=== PATIENT | male | born 1970 | race Caucasian/White ===

== ENCOUNTER → 2021-03-10 | Day surgery (SDC) | payer BC ==
[2021-03-07 12:23] LABS: Absolute Lymphocytes (CBC) 1.1 K/uL (0.7-4.9); Basophils % 0.4 % (0-1.3); Hematocrit 46.9 % (39.6-49.0); Lymphocytes % 12.8 % (15.3-44.8); MPV 7.3 fL (7.6-11.3); RBC Red Blood Cell Count 4.54 M/uL (4.33-5.43)
--- NOTE | 2021-03-07 12:37 | RAD REPORT ---
EXAM DESCRIPTION: RAD - Chest Pa And Lat (2 Views) - 03/07/2021 12:28 pm CLINICAL HISTORY: pre-op, pending hernia repair COMPARISON: Portable March 2017 TECHNIQUE: Frontal and lateral views of the chest were obtained. FINDINGS: The lungs are clear. Heart size is normal and central vasculature is within normal limit s. No pleural effusion or pneumothorax seen. No acute bony finding noted. No aortic abnormality. IMPRESSION: No acute cardiopulmonary process.
[2021-03-07 12:41] LABS: BUN Blood Urea Nitrogen 5 mg/dL (7-18); Bicarbonate 29 mmol/L (21-32); Glucose Level 85 mg/dL (74-106); Potassium 4.3 mmol/L (3.5-5.1); Sodium Level 136 mmol/L (136-145)
[~2021-03-10] MED LIST: CEFAZOLIN/SWI 1gm 0 GM/0 ML SYR ONE; Ringers Lactate 1,000 ML IV ONE; SCOPOLAMINE HYDROBROMIDE PATCH TD ONE
[2021-03-10 09:12] VITALS: BP 126/94; TEMP 98.1; O2SAT 97
== END ==
LOC: OR 08:40
PROVIDERS: ATTEND Surgery
DX: K42.0 Umbilical hernia with obstruction, without gangrene (principal); I10 Essential (primary) hypertension; U07.1 COVID-19; Z53.8 Procedure and treatment not carried out for other reasons
CPT/HCPCS: 93005; 85025; 80048; 36415; 71046; U0003; J7120; J0690

== ENCOUNTER 2021-03-19 08:06 | Day surgery (SDC) | payer BC ==
[2021-03-19] MEDS ORDERED: Ringers Lactate 1,000 ML IV ONE ×2 (08:58→12:09)
[2021-03-19] MEDS ORDERED: MIDAZOLAM HCL 2 MG/2 ML INJ ONE ×3 (09:19→12:15)
[2021-03-19] MEDS ORDERED: propofoL 200 MG/20 ML VIAL IV ONE (09:19)
[2021-03-19] MEDS ORDERED: LIDOCAINE 2% MPF 5 ML VIAL ONE (09:20)
[2021-03-19] MEDS ORDERED: FENTANYL CITR 250 MCG/5 ML ONE (09:20)
[2021-03-19] MEDS ORDERED: ONDANSETRON 4 MG/2 ML VIAL ONE (09:20)
[2021-03-19] MEDS ORDERED: ROCURONIUM 50 MG/5 ML VIAL IV ONE ×2 (09:20→11:02)
[2021-03-19] MEDS ORDERED: GLYCOPYRROLATE 0.2 MG/ML SYR ONE (09:20)
[2021-03-19] MEDS ORDERED: CEFAZOLIN SODIUM 1 GM/VIAL ONE (10:55)
--- NOTE | 2021-03-19 11:30 | P.BOP ---
Preoperative diagnosis: Reducible tender Left inguinal hernia, incarcerated umbilical hernia Postoperative diagnosis: same Primary procedure: 1. Laparoscopic repair of Reducible tender Left inguinal hernia with mesh Secondary procedure: 2. Open repair of incarcerated umbilical hernia Professor Of Historical Theology: ROBINSON ARMAS (BIN CLEANER) Estimated blood loss: <10cc Specimen: hernia sax Findings: as above. incarcerated omentum Anesthesia: General Complications: None Implants: 3d mesh Transferred to: Recovery Room Condition: Good
[2021-03-19] MEDS: HYDROMORPHONE HCL 1 MG/ML INJ ONE ×2 (11:35→11:41)
[2021-03-19] MEDS ORDERED: MEPERIDINE HCL 25 MG/ML SYR ONE (11:41)
[2021-03-19] MEDS ORDERED: FENTANYL CITR 100 MCG/2 ML ONE ×2 (11:43→13:24)
[2021-03-19] MEDS ORDERED: KETOROLAC 30 MG/ML INJ ONE (11:47)
[2021-03-19] MEDS ORDERED: BUPIVACAINE 0.25% PF 30 ML VIAL ONE (12:17)
[2021-03-19] MEDS ORDERED: dexAMETHasone 10 MG/ML VIAL ONE (12:17)
[2021-03-19] MEDS ORDERED: NS 0.9% VIAL 10 ML ONE (12:17)
[2021-03-19] MEDS ORDERED: LIDOCAINE 1% MPF 5 ML VIAL ONE (12:22)
[2021-03-19 12:28] VITALS: O2SAT 98
--- NOTE | 2021-03-19 13:05 | DS ---
Diagnosis: Reducible tender left inguinal hernia and incarcerated umbilical hernia. Procedure: Laparoscopic repair of a reducible tender left inguinal hernia with mesh and open repair of incarcerated umbilical hernia. Disposition: Home. Activity: As tolerated. No heavy lifting. Plan: Follow up in my office in 1 week. Call for appointment at [phone]. Keep area dry for 48 amy rs, then may shower. Cold compress to the left inguinal region for 24 hours. AME/MARIE Voice ID: [id number] Report ID: [id number]
--- NOTE | 2021-03-19 13:11 | OP ---
Date of Procedure: 03/19/2021 Surgeon: Chase Dean MD Systems Engineering Manager: Palma Louis. Preoperative Diagnosis: Reducible tender left inguinal hernia and also incarcerated umbilical hernia . Postoperative Diagnosis: Reducible tender left inguinal hernia and also incarcerated umbilical herni a. Procedures: 1.Laparoscopic repair of reducible tender left inguinal hernia with mesh. 2.Open repair of incarcerated umbilical hernia. Estimated Blood Loss: Less than 10 mL. Specimen: Umbilical hernia sac. Findings: The patient has incarcerated omentum within the hernia sac. Anesthesia: General plus local. Implants: A 3D mesh. Complications: None. Indication: This is the case of a male, who comes to us with a tender left inguinal hernia, large, r educible, and also has an incarcerated umbilical hernia. Benefits, alternatives, and risks of laparo scopic possible repair of left inguinal hernia with mesh and repair of incarcerated umbilical hernia fully explained to the patient, which include, but not limited to infection, bleeding, damage to david cent structures, anesthesia complication, recurrence, chronic pain, chronic numbness, AL, and even de ath. He also understands this may not relieve any symptoms. He might need more than one surgical in tervention. He understood, signed a consent. Procedure In Detail: The patient was brought to the operating room, placed in supine position. Anes thesia was done without complication. Abdominal area and inguinal region were prepped and draped in sterile fashion. The patient was placed in Trendelenburg position. We made an incision in the infra umbilical region. That incision will serve us to not only to get access to the inguinal, but also at the end we are going to be repairing the umbilical hernia. We are trying to stay away from the grecia toneum at this moment. So, we made an incision just below the umbilical region on the anterior rectu s sheath most laterally to expose the posterior rectus sheath. The extraperitoneal space was gently developed with blunt dissection and then a balloon-tipped pacemaker trocar was placed over the area, insufflated under direct visualization with the camera. The balloon was deflated and removed under d irect visualization. Then, the area was insufflated and a laparoscope was placed in. I placed a 5 m m trocar just about the pubis symphysis and another 1 penitent[facility] between the first and second one. The preperitoneal space was further developed by exposing the inferior epigastric vessels keeping them an terior. Aidan ligament was dissected laterally to the junction with the iliac veins. The dissectio n was continued inferiorly to the iliopubic tract avoiding damage to the femoral branch of the genito femoral nerve and lateral femoral cutaneous nerve. The cord structures were carefully skeletonized. We noticed the hernia sac, carefully reduced by gentle traction into the peritoneal cavity. At that moment, I proceeded to introduce over the area through the trocar site a medium 3D mesh on the left side, secured in place to cover indirect spaces. The mesh was secured in place lateral and superior to the iliopubic tract and inferior medial to the Aidan ligament with the help of SorbaFix. After e nsuring adequate hemostasis and holding the mesh in place, we proceeded to deflate the area under dir ect visualization. Trocars were removed and anterior rectus sheath was closed with #1 Vicryl. At th at moment, we directed our attention to the umbilical area. Even though we used the same umbilical s kin and the umbilical incision, the incision in the fascia is different, this is umbilical. So at th at moment, I proceeded to remove the hernia sac from umbilical skin, opened the hernia sac and notice d incarcerated omentum, but after removing some adhesions, we were able to reduced back into the abdo gay cavity, although some of them have to be ligated between Judie clamps and chromic. The area wa s irrigated. Fascial edges were cleaned and then we proceeded to closed that with a [id number] fashion multiple times #1 Prolene. The patient tolerated the procedure well. Subcutaneous tissue wa s closed with 3-0 chromic and the skin in a subcuticular fashion with 3-0 chromic and Steri-Strips on top. Sponge count and instrument counts correct at the end of the case. Testicles were in the scro bryson. The patient was sent to recovery in stable condition. HM/MODL Voice ID: [id number] Report ID: [id number]
[2021-03-19 13:37] VITALS: BP 118/68; TEMP 98
[2021-03-19] MEDS ORDERED: HYDROCODONE/APAP 10/325 TAB PO ONE (13:45)
== END 2021-03-19 14:15 | disposition home or self-care (01) ==
LOC: OR 08:06
PROVIDERS: ATTEND Surgery
PROC: 0YU64JZ Supplement Left Inguinal Region with Synthetic Substitute, Percutaneous Endoscopic Approach (ICD-10-PCS; principal; 2021-03-19 09:30)
PROC: 0WQF0ZZ Repair Abdominal Wall, Open Approach (ICD-10-PCS; 2021-03-19 09:30)
DX: K42.0 Umbilical hernia with obstruction, without gangrene (principal); K40.90 Unilateral inguinal hernia, without obstruction or gangrene, not specified as recurrent; Z20.822 Contact with and (suspected) exposure to COVID-19
CPT/HCPCS: 88302; 49650; 49587; J2704; J2250 ×3; J3010 ×3; J1100; J2175; J1170; J7120 ×2; J2405; J0690

== ENCOUNTER 2021-03-20 04:05 | Inpatient (IN) | payer BC ==
[2021-03-20 04:26] LABS: Absolute Lymphocytes (CBC) 0.9 K/uL (0.7-4.9); Basophils % 0.4 % (0-1.3); Hematocrit 33.4 % (39.6-49.0); Lymphocytes % 8.1 % (15.3-44.8); MPV 7.5 fL (7.6-11.3); RBC Red Blood Cell Count 3.22 M/uL (4.33-5.43)
[2021-03-20] MEDS ORDERED: FENTANYL CITR 100 MCG/2 ML ONE ×3 (04:40→06:46)
[2021-03-20] MEDS ORDERED: NA CHLORIDE 0.9% 1,000 ML ONE ×3 (04:40→19:55)
[2021-03-20 04:43] LABS: Albumin 3.4 g/dL (3.4-5.0); Bilirubin Direct 0.3 mg/dL (0-0.2); Bilirubin Total 0.8 mg/dL (0.2-1.0); Potassium 4.4 mmol/L (3.5-5.1); Protein, Total 6.4 g/dL (6.4-8.2)
[2021-03-20 05:01] LABS: Blood Morphology Comment NOT SEEN (NOT SEEN); Platelet Estimate ADEQ
[2021-03-20] MEDS ORDERED: ONDANSETRON 4 MG/2 ML VIAL ONE ×3 (05:01→14:31)
--- NOTE | 2021-03-20 05:29 | ER ---
Nurse's Notes [facility] Name: Koko Quintero Age: 50 yrs Sex: Male : 1970 Arrival Date: 03/20/2021 Time: 04:09 Bed 2 Private MD: Diagnosis: Post surgical abdominal pain Large amount of hemoperitoneum. S/P umbilical and left inguinal hernia repairs Presentation: 03/20 04:22 Chief complaint: Patient states: patient presents to the ED s/p abdominal surgery. ms4 patient states he had umbilical and inguinal hernia repair yesterday and was sent home with an abdominal binder. patient awoke about 30 minutes ago in excruciating pain with his abdominal binder saturated in blood. patient pale, tachycardic, with active bleeding to surgical site. 250 ml of LR given en route to hospital. Coronavirus screen: Client denies travel out of the [place] in the last 14 days. Ebola Screen: Patient negative for fever greater than or equal to 101.5 degrees Fahrenheit, and additional compatible Ebola Virus Disease symptoms Patient denies exposure to infectious person. Patient denies travel to an Ebola-affected area in the 21 days before illness onset. No symptoms or risks identified at this time. Initial Sepsis Screen: Does the patient meet any 2 criteria? RR > 20 per min. HR > 90 bpm. Yes Does the patient have a suspected source of infection? No. Patient's initial sepsis screen is negative. Risk Assessment: Do you want to hurt yourself or someone else? Patient reports no desire to harm self or others. Note MD at bedside. Onset of symptoms was March 20, 2021 at 04:00. 04:22 Method Of Arrival: EMS: [facility] ms4 04:22 Acuity: RACHEL 2 ms4 04:31 Care prior to arrival: Medication(s) given: LR 250 ml. Activity prior to arrival: None. ms4 Mechanism of Injury: No Mechanism of Injury. Transition of care: patient was not received from another setting of care. Triage Assessment: 04:27 General: Appears distressed, uncomfortable, Behavior is restless. Pain: Complains of ms4 pain in abdomen Pain currently is 10 out of 10 on a pain scale. Quality of pain is described as stabbing, Pain began suddenly, Noted to be grimacing, guarding, moaning, resistant to movement. Neuro: No deficits noted. Cardiovascular: Rhythm is sinus tachycardia. Respiratory: No deficits noted. GI: Abdomen is Bleeding from surgical site Abdomen is tender to palpation Guarding noted X 4 quads. Reports lower abdominal pain. : No deficits noted. Historical: - Allergies: 04:53 No Known Allergies; ms4 - Home Meds: 04:54 Unable to obtain [Active]; ms4 - PMHx: 04:56 Hypertensive disorder; ms4 - Immunization history:: Adult Immunizations up to date, Client reports having NOT received the Covid vaccine. Last tetanus immunization: up to date. - Social history:: Smoking status: Patient reports the use of cigarette tobacco products, denies chronic smoking, but will smoke occasionally, Patient uses alcohol, on a daily basis. admits to "couple of beers" a day. Screenin:33 Abuse screen: Denies threats or abuse. Denies injuries from another. Nutritional ms4 screening: No deficits noted. Tuberculosis screening: No symptoms or risk factors identified. Fall Risk Secondary diagnosis (15 points) impaired mobility, IV access (20 points). Ambulatory Aid- None/Bed Rest/Nurse Assist (0 pts). Gait- Normal/Bed Rest/Wheelchair (0 pts) Mental Status- Oriented to own ability (0 pts). Total Lopez Fall Scale indicates Low Risk Score (25-44 pts). Fall prevention measures have been instituted. Side Rails Up X 2 Placed close to Nursing Station 1:1 attendant Assigned to Pt. Frequent Obs/Assesments occuring. Assessment: 04:56 General: Appears uncomfortable, Behavior is calm, cooperative. Pain: Complains of pain ms4 in abdomen Pain currently is 6 out of 10 on a pain scale. Quality of pain is described as stabbing. Neuro: No deficits noted. Cardiovascular: No deficits noted. Respiratory: No deficits noted. GI: Abdomen is bleeding from surgical site Abdomen is tender to palpation X 4 quads. Reports lower abdominal pain. : No deficits noted. 04:59 Reassessment: Patient and/or family updated on plan of care and expected duration. Pain ms4 level reassessed. patient reports he is feeling a little better after fentanyl. Vital Signs: 04:22 BP 96 / 84; Pulse 109; Resp 30; Temp 97.7; Pulse Ox 96% ; Pain 10/10; ms4 04:57 BP 125 / 98; Pulse 99; Resp 18; Temp 98.4; Pulse Ox 99% 2 lpm ; ms4 05:30 BP 104 / 67; Pulse 108; Resp 22; Pulse Ox 99% 2 lpm ; Pain 8/10; ms4 06:01 BP 97 / 71; Pulse 105; Resp 22; Pulse Ox 98% 2 lpm ; Pain 8/10; ms4 ED Course: 04:09 Patient arrived in ED. mw2 04:22 Amanda Marin RN is Primary Nurse. ms4 04:27 Triage completed. ms4 04:29 Arm band placed on right wrist. Patient placed in an exam room, on a stretcher, on ms4 oxygen, on outpatient program coordinator, on pulse oximetry, Patient's private physician notified. Labs ordered per protocol. CT ordered. Pressure dressing applied. 04:[address] via stretcher. ms4 04:32 Inserted saline lock: 18 gauge in left antecubital area, using aseptic technique. ms4 04:33 Maintain EMS IV. Dressing intact. Good blood return noted. Site clean \\T\\ dry. Gauge \\T\\ ms 4 site: 20 G RAC. IV Flushed Converted IV to saline lock on. 04:34 CT Abd/Pelvis - IV Contrast Only Sent. ms4 04:36 CT Abd/Pelvis - IV Contrast Only In Process Unspecified. EDMS 04:44 Keaton David MD is Attending Physician. pkl 05:24 Chase Dean MD is Hospitalizing Provider. pkl 23:12 No provider procedures requiring assistance completed. Patient admitted, IV remains in em place. Administered Medications: 04:15 Drug: Lactated Ringers Solution 1000 ml Route: IV; Rate: 999 ml/hr; Site: left ms4 antecubital; 04:46 Follow up: Response: No adverse reaction; IV Intake: 1000ml ms4 04:28 Drug: fentaNYL (PF) 25 mcg Route: IVP; Site: left antecubital; ms4 04:46 Follow up: Response: No adverse reaction ms4 04:45 Drug: fentaNYL (PF) 25 mcg Route: IVP; Site: left antecubital; ms4 04:46 Follow up: Response: No adverse reaction ms4 04:46 Drug: NS 0.9% 1000 ml Route: IV; Rate: 125 ml/hr; Site: left antecubital; ms4 05:37 Drug: Dilaudid (HYDROmorphone) 0.5 mg Route: IVP; Site: right antecubital; bs2 06:02 Follow up: Response: No adverse reaction ms4 06:29 Drug: fentaNYL (PF) 25 mcg Route: IVP; Site: left antecubital; ms4 06:29 Follow up: Response: No adverse reaction ms4 06:29 Drug: Promethazine 12.5 mg Route: IVP; Site: left antecubital; ms4 06:29 Follow up: Response: No adverse reaction ms4 Intake: 04:46 IV: 1000ml; Total: 1000ml. ms4 Outcome: 05:28 Decision to Hospitalize by Provider. pkl 23:12 Admitted to Med/surg accompanied by tech, via stretcher, room 229, Report called to em Apurva 23:12 Condition: stable 23:12 Instructed on the need for admit, Demonstrated understanding of instructions. 23:13 Patient left the ED. em Signatures: Dispatcher [employer] Keaton Moody MD MD pkl Munoz, Edgar, RN RN em Leon Uribe mw2 Connie Brar RN RN bs2 Amanda Marin RN RN ms4 Corrections: (The following items were deleted from the chart) 04:54 04:53 Home Meds: Clonazepam Oral [Inactive]; ms4 ms4
--- NOTE | 2021-03-20 05:29 | EDPHYS ---
Physician Documentation [facility] Name: Koko Quintero Age: 50 yrs Sex: Male : 1970 Arrival Date: 03/20/2021 Time: 04:09 Bed 2 Private MD: ED Physician Keaton David HPI: 03/20 04:49 This 50 yrs old Male presents to ER via EMS with complaints of Post Surgical pkl Bleeding. 04:49 The patient presents with abdominal pain that is diffuse. Onset: The symptoms/episode pkl began/occurred just prior to arrival. The symptoms do not radiate. Associated signs and symptoms: Pertinent positives: bleeding from incision wound. S/P umbilical hernia and left inguinal hernia repairs by Dr. Dean. Historical: - Allergies: 04:53 No Known Allergies; ms4 - Home Meds: 04:54 Unable to obtain [Active]; ms4 - PMHx: 04:56 Hypertensive disorder; ms4 - Immunization history:: Adult Immunizations up to date, Client reports having NOT received the Covid vaccine. Last tetanus immunization: up to date. - Social history:: Smoking status: Patient reports the use of cigarette tobacco products, denies chronic smoking, but will smoke occasionally, Patient uses alcohol, on a daily basis. admits to "couple of beers" a day. ROS: 04:49 Eyes: Negative for injury, pain, redness, and discharge, ENT: Negative for injury, pkl pain, and discharge, Neck: Negative for injury, pain, and swelling, Cardiovascular: Negative for chest pain, palpitations, and edema, Respiratory: Negative for shortness of breath, cough, wheezing, and pleuritic chest pain. 04:49 Abdomen/GI: Positive for abdominal pain, of the right upper quadrant, left upper quadrant, right lower quadrant and left lower quadrant. 04:49 Back: Negative for acute changes. 04:49 : Negative for urinary symptoms. 04:49 MS/extremity: Negative for acute changes. 04:49 Skin: Negative for rash. 04:49 Neuro: Negative for altered mental status, loss of consciousness. Exam: 04:49 Head/Face: Normocephalic, atraumatic. Eyes: Pupils equal round and reactive to light, pkl extra-ocular motions intact. Lids and lashes normal. Conjunctiva and sclera are non-icteric and not injected. Cornea within normal limits. Periorbital areas with no swelling, redness, or edema. ENT: Nares patent. No nasal discharge, no septal abnormalities noted. Tympanic membranes are normal and external auditory canals are clear. Oropharynx with no redness, swelling, or masses, exudates, or evidence of obstruction, uvula midline. Mucous membranes moist. Neck: Trachea midline, no thyromegaly or masses palpated, and no cervical lymphadenopathy. Supple, full range of motion without nuchal rigidity, or vertebral point tenderness. No Meningismus. Chest/axilla: Normal chest wall appearance and motion. Nontender with no deformity. No lesions are appreciated. Cardiovascular: Regular rate and rhythm with a normal S1 and S2. No gallops, murmurs, or rubs. Normal PMI, no JVD. No pulse deficits. Respiratory: Lungs have equal breath sounds bilaterally, clear to auscultation and percussion. No rales, rhonchi or wheezes noted. No increased work of breathing, no retractions or nasal flaring. 04:49 Abdomen/GI: Bowel sounds: normal, Palpation: soft, moderate abdominal tenderness, in the right upper quadrant, left upper quadrant, right lower quadrant and left lower quadrant. 04:49 Abdomen/GI: Inspection: moderate amount of blood noted on abdominal binder. 04:49 Back: Exam negative for acute changes. 04:49 : Exam negative for acute changes. 04:49 Musculoskeletal/extremity: Exam is negative for acute changes. 04:49 Skin: Exam negative for rash. 04:49 Neuro: Orientation: is normal, Mentation: is normal, Cranial nerves: grossly normal, Motor: is normal. Vital Signs: 04:22 BP 96 / 84; Pulse 109; Resp 30; Temp 97.7; Pulse Ox 96% ; Pain 10/10; ms4 04:57 BP 125 / 98; Pulse 99; Resp 18; Temp 98.4; Pulse Ox 99% 2 lpm ; ms4 05:30 BP 104 / 67; Pulse 108; Resp 22; Pulse Ox 99% 2 lpm ; Pain 8/10; ms4 06:01 BP 97 / 71; Pulse 105; Resp 22; Pulse Ox 98% 2 lpm ; Pain 8/10; ms4 MDM: 04:44 Patient medically screened. pkl 05:21 Data reviewed: vital signs, nurses notes, lab test result(s), radiologic studies, CT pkl scan. ED course: Talked to Dr. Dean, for observation. 03/20 04:13 Order name: Basic Metabolic Panel; Complete Time: 05:29 ms4 03/20 04:13 Order name: CBC with Diff; Complete Time: 05:29 ms4 03/20 04:13 Order name: Hepatic Function; Complete Time: 05:29 ms4 03/20 04:13 Order name: Lipase; Complete Time: 05:29 ms4 03/20 04:13 Order name: Type And Screen; Complete Time: 19:07 ms4 03/20 04:28 Order name: Manual Differential; Complete Time: 05:29 EDMS 03/20 04:44 Order name: PT-INR ms4 03/20 04:45 Order name: Protime (+INR); Complete Time: 06:23 EDMS 03/20 05:45 Order name: CREATININE WHOLE BLOOD; Complete Time: 06:23 EDMS 03/20 05:52 Order name: Hematocrit; Complete Time: 19:20 EDMS 03/20 05:52 Order name: Hemoglobin; Complete Time: 19:20 EDMS 03/20 08:41 Order name: ABO/RH no charge; Complete Time: 19:20 EDMS 03/20 16:09 Order name: CBC with Automated Diff; Complete Time: 19:20 EDMS 03/20 16:37 Order name: CBC Smear Scan; Complete Time: 19:20 EDMS 03/20 04:13 Order name: CT Abd/Pelvis - IV Contrast Only; Complete Time: 19:20 ms4 03/20 05:52 Order name: NPO; Complete Time: 06:02 EDMS 03/20 17:27 Order name: Hemoglobin; Complete Time: 19:20 EDMS 03/20 17:27 Order name: Hematocrit; Complete Time: 19:20 EDMS 03/20 18:36 Order name: COVID-19 : Document "Date of Symptom Onset" if Symptomatic. ss 03/20 19:35 Order name: CORONAVIRUS EDMS 03/20 20:38 Order name: CBC with Manual Differential em 03/20 20:43 Order name: SARS-COV-2 RT PCR; Complete Time: 19:07 EDMS 03/20 21:03 Order name: CBC with Manual Differential; Complete Time: 19:07 EDMS 03/20 04:13 Order name: IV Saline Lock; Complete Time: 04:34 ms4 03/20 04:13 Order name: Labs collected and sent; Complete Time: 04:34 ms4 03/20 04:52 Order name: Labs - recollect needed: blue top; Complete Time: 05:21 mw2 Administered Medications: 04:15 Drug: Lactated Ringers Solution 1000 ml Route: IV; Rate: 999 ml/hr; Site: left ms4 antecubital; 04:46 Follow up: Response: No adverse reaction; IV Intake: 1000ml ms4 04:28 Drug: fentaNYL (PF) 25 mcg Route: IVP; Site: left antecubital; ms4 04:46 Follow up: Response: No adverse reaction ms4 04:45 Drug: fentaNYL (PF) 25 mcg Route: IVP; Site: left antecubital; ms4 04:46 Follow up: Response: No adverse reaction ms4 04:46 Drug: NS 0.9% 1000 ml Route: IV; Rate: 125 ml/hr; Site: left antecubital; ms4 05:37 Drug: Dilaudid (HYDROmorphone) 0.5 mg Route: IVP; Site: right antecubital; bs2 06:02 Follow up: Response: No adverse reaction ms4 06:29 Drug: fentaNYL (PF) 25 mcg Route: IVP; Site: left antecubital; ms4 06:29 Follow up: Response: No adverse reaction ms4 06:29 Drug: Promethazine 12.5 mg Route: IVP; Site: left antecubital; ms4 06:29 Follow up: Response: No adverse reaction ms4 Disposition Summary: 03/20/21 05:28 Hospitalization Ordered Hospitalization Status: Observation pkl Provider: Chase Dean pkrobyn Condition: Stable pkl Problem: new pkl Symptoms: have improved pkl Bed/Room Type: Standard pkl Location: Telemetry/MedSurg (observation)(03/20/21 22:10) cg Room Assignment: 229(03/20/21 22:10) cg Diagnosis - Post surgical abdominal pain Large amount of hemoperitoneum. S/P umbilical pkl and left inguinal hernia repairs Forms: - Medication Reconciliation Form pkl - SBAR form pkl Signatures: Dispatcher [employer] EDMS David, Pin, MD Estela Stahl, RN RN ss Eber Ortega, ELECTRIC MOTOR WINDERS ASSEMBLER-C ELECTRIC MOTOR WINDERS ASSEMBLER-Cla1 Karrie Richardson RN RN Leon Uribe 2 Connie Brar RN RN bs2 Amanda Marin RN RN ms4 Corrections: (The following items were deleted from the chart) 04:54 04:53 Home Meds: Clonazepam Oral [Inactive]; ms4 ms4 12:03 05:28 Telemetry/MedSurg (observation) pkl 12:03 05:28 pkl 22:10 12:03 [facility] ER HOLD ss cg 22:10 12:03 ERHOLD- ss cg
[2021-03-20 05:37] LABS: Protime INR 0.99
[2021-03-20] MEDS ORDERED: MORPHINE 4 MG/ML SYR IV PRN (05:47)
[2021-03-20] MEDS ORDERED: HYDROMORPHONE HCL 2 MG/ML inj ONE (05:58)
[2021-03-20] MEDS ORDERED: D5 0.45 NS 1,000 ML IV SCH (06:00)
[2021-03-20] MEDS ORDERED: D5 0.45 NS 1,000 ML IV ONE (06:34)
[2021-03-20] MEDS ORDERED: PROMETHAZINE INJ 25 MG/ML AMP ONE (06:45)
[2021-03-20 07:02] LABS: Hematocrit 27.3 % (39.6-49.0)
[2021-03-20] MEDS: ONDANSETRON 4 MG/2 ML VIAL IV PRN ×4 (07:55→23:34)
[2021-03-20] MEDS ORDERED: MORPHINE 4 MG/ML SYR ONE ×7 (08:10→22:50)
[2021-03-20] MEDS ORDERED: NA CHLORIDE 0.9% 1,000 ML IV ONE (10:37)
[2021-03-20] MEDS: MORPHINE 4 MG/ML SYR IV PRN ×5 (10:44→19:20)
--- NOTE | 2021-03-20 11:30 | RAD REPORT ---
EXAM DESCRIPTION: ADDENDUM #1 THIS REPORT CONTAINS FINDINGS THAT MAY BE CRITICAL TO PATIENT CARE: The findings were communicated via telephone conference with Dr. Adan on 03/20/2021 5:18 AM CDT. The re sults were acknowledged and understood. After this discussion, findings are compatible with postoperative changes from hernia surgery, not tr auma. The large hemoperitoneum and right abdominal hematoma with extravasation were discussed with Dr Shimon Adan. Electronically signed by: Abundio Ambrocio MD 03/20/2021 5:20 AM CDT End of Addendum EXAM DESCRIPTION: CT Abdomen and Pelvis COMPARISON: None. CLINICAL HISTORY: ABD PAIN TECHNIQUE: CT of the abdomen and pelvis was acquired with IV contrast material. Coronal and sagitt al reconstructions were obtained. Automated exposure control was utilized on this examination as a dose lowering technique. FINDINGS: Lung bases: Right basilar atelectasis. There is anterior pneumomediastinum. Liver: Normal. Gallbladder and biliary: Normal gallbladder. Unremarkable biliary tree. Pancreas: Normal. Spleen: Normal. Adrenal glands: Normal adrenal glands. Kidneys: Normal kidneys Stomach and Small Bowel: The stomach and small bowel are normal. Urinary bladder: Normal. Prostate/Male Urogenital: Normal. Colon and Appendix: The colon is unremarkable. No evidence of appendicitis. Retroperitoneum and lymph nodes: A few mesenteric and retroperitoneal lymph nodes are likely reactive . Vascular: Moderate multivessel calcified atherosclerosis. Peritoneal cavity: Hemoperitoneum and scattered pneumoperitoneum. A large collection of blood in the right abdomen measures 13.6 x 6.5 x 16.1 cm. There is also left extraperitoneal blood. Musculoskeletal and soft tissues: Multiple lacerations of the ventral abdomen are present. Periumbili dash hematoma and laceration are noted. No aggressive bone lesions. No compression fracture. IMPRESSION: 1. Large amount of hemoperitoneum. A collection of blood in the right abdomen measures 1 3.6 x 6.5 x 16.1 cm. There is active extravasation with a likely ventral omental or mesenteric source vessel on series 501 image 50. There is also left extraperitoneal blood, likely from injury to the l eft abdominal musculature. 2. Partially visualized anterior pneumomediastinum and scattered pneumoperitoneum. Periumbilical lace ration or chest injury are possible sources. Electronically signed by: Abundio Abmrocio MD 03/20/2021 5:02 AM CDT Due to temporary technical issues with the PACS/Fluency reporting system, reports are being signed by the in house radiologist without review as a courtesy to ensure prompt reporting. The interpreting r adiologist is fully responsible for the content of the report.
[2021-03-20] MEDS: NA CHLORIDE 0.9% 1,000 ML IV SCH ×2 (12:00→18:40)
--- NOTE | 2021-03-20 13:57 | HP ---
Date of Admission: 03/20/2021 Reason For Service: Abdominal pain. History Of Present Illness: This is the case of a 50-year-old patient, who had a previous laparoscop ic inguinal hernia repair, also open repair of a ventral umbilical hernia incarcerated with omentum. The case was uneventful. The patient was able to go home. He was doing good until 8 o'clock last n ight. He says that he was getting out of bed due to lot of straining and felt a pop in the area near the belly button. He stayed quiet and developed abdominal pain after that and then when the pain go t worse, he decided to come to the ER. The patient was seen in the ER where the CT scan shows bruise s over the area of periumbilical region. Some postsurgical changes of areas from the previous laparo scopic repair and also area of fluid collection also in the abdomen. He denies any fall. He said he was doing great until that moment when he was trying to get out of bed, taken a lot of efforts to co me out and he fell that popping. He denies any dysuria, hematuria, hematochezia, melena. Once again , he denies any fall. Social History: He does not smoke. He does not drink alcohol. Family History: Unremarkable. Allergies: NONE. Past Medical History: See my previous H and P. Review of Systems: No nausea. No vomiting. No melena. No hematochezia, but having periumbilical pain. Physical Examination: General: The patient is awake, alert. HEENT: Pupils are equal, reactive. Anicteric. Neck: Supple. Chest: Clear. Abdomen: Soft and depressible. The incisions over the midline and lower part look intact. The inci gloria on the periumbilical region in that area after I removed the Steri-Strips. The patie nt has periumbilical tenderness. The area of the left inguinal region and on the infraumbilical inci gloria is intact with no pain. Extremities: Good capillary refill. CAT scan was reviewed with the patient. Obviously, the fluid that we have in that region. Laparosco pic procedure will do so. The patient has postoperative changes. When we did the surgery, the ventr al region hernia has some omentum trapped on the area so lysis of adhesions have to be done and also a tie of the omental region. No mesh was placed in that area. Laboratory Data: Blood work shows WBC count of 11.6, hemoglobin of 11.6, hematocrit of 33.4, and trey telets of 189. Assessment: This is a 50-year-old patient with abdominal pain, he felt a pop yesterday. He has been doing well after he finished surgery and then after that developed abdominal pain and we noticed miguel e fluid in the abdomen, even though maybe some postoperative changes. I believe the patient should b e in the hospital and basically we are going to keep in observation H and H. If we see that he does not improve, then we discussed with him the options of diagnostic laparoscopy, although he preferred not to use that option at this moment. His hemoglobin is 11.6 at that moment. We are going to keep an eye on hemoglobin. We are going to give him hydration and pain control. The benefits, alternativ es, and risks of diagnostic laparoscopy were fully explained to the patient, which include, but not l imited to infection, bleeding, damage to adjacent structures, anesthesia complication, recurrence UT, and even . The patient was advised in the future the importance to keep the abdominal binder i n place and avoid heavy lifting. The patient will be admitted to the hospital, IV hydration, follow H and H, and we will might have to proceed and investigate the periumbilical region. AME/MARIE Voice ID: [id number]
[2021-03-20] MEDS: HYDROCODONE/APAP 5/325 MG TAB PO PRN ×3 (15:53→23:34)
[2021-03-20 16:05] LABS: Absolute Lymphocytes (CBC) 1.1 K/uL (0.7-4.9); Basophils % 0.2 % (0-1.3); Hematocrit 21.9 % (39.6-49.0); Lymphocytes % 7.2 % (15.3-44.8); RBC Red Blood Cell Count 2.11 M/uL (4.33-5.43)
[2021-03-20] MEDS ORDERED: HYDROCODONE/APAP 5/325 MG TAB ONE ×2 (16:08→20:31)
[2021-03-20 16:36] LABS: White Blood Cell Scan OK (OK)
[2021-03-20 16:37] LABS: Blood Morphology Comment NOT SEEN (NOT SEEN); Platelet Estimate ADEQ
[2021-03-20 17:23] LABS: Hematocrit 31.5 % (39.6-49.0)
[2021-03-20] MEDS ORDERED: NA CHLORIDE 0.9% 500 ML ONE (17:47)
[2021-03-20 20:55] LABS: Basophils % 0.2 % (0-1.3)
[2021-03-20 20:59] LABS: Absolute Lymphocytes (CBC) 0.9 K/uL (0.7-4.9); Hematocrit 24.1 % (39.6-49.0); Lymphocytes % 6.6 % (15.3-44.8); MPV 7.7 fL (7.6-11.3); RBC Red Blood Cell Count 2.46 M/uL (4.33-5.43)
[2021-03-20] MEDS: CIPROFLOXACIN 400mg IV 400 MG/200 ML BAG IV SCH (21:00)
[2021-03-20 21:26] LABS: Blood Morphology Comment NOT SEEN (NOT SEEN); Platelet Estimate DECR
[2021-03-20 23:27] VITALS: BMI 25.5
[2021-03-21] MEDS ORDERED: NA CHLORIDE 0.9% 250 ML ONE (00:48)
[2021-03-21] MEDS: NA CHLORIDE 0.9% 1,000 ML IV SCH ×4 (01:20→21:20)
[2021-03-21] MEDS: MORPHINE 4 MG/ML SYR IV PRN ×4 (01:21→08:43)
[2021-03-21] MEDS ORDERED: MORPHINE 2 MG/ML SYR ONE (01:38)
[2021-03-21 07:36] LABS: Hematocrit 24.6 % (39.6-49.0)
[2021-03-21] MEDS: CIPROFLOXACIN 400mg IV 400 MG/200 ML BAG IV SCH ×2 (08:42→20:28)
[2021-03-21] MEDS: HYDROCODONE/APAP 5/325 MG TAB PO PRN ×3 (11:59→20:28)
--- NOTE | 2021-03-21 18:18 | PN ---
Date of Progress Note: 03/21/2021 Subjective: Mr. Quintero is a 50-year-old patient with history of multiple abdominal surgeries includi ng ventral hernias and also inguinal hernias with incarceration and release of the omentum with adhes ions on it. He was doing well. One night, when he moved out of bed, he felt a pop in the belly, cam e to the ER a few hours later because of pain, found to have hemoperitoneum. He is going to have pne umo because he has laparoscopic surgery too. We noticed, he also popped 1 of the stitches on the umb ilical region. He was trying to get out. He did not fall he was describing. We admitted to the [facility]. We started on IV fluids. Serial H and H. He understands the option of diagnostic laparoscop y. With the fluid resuscitation, the patient improved. Blood pressure improved. His pain is less. He is right now hungry. He wants to eat some diet. He wants to get out of bed. Vital signs are st able with a blood pressure of 119/67 with a temperature 98.4. We took a look in the area this mornin g. Incisions in the umbilical region were intact. No bleeding. Plan: Clear liquid diet. Follow up H and H. Physical therapy. Out of bed with assistance. AME/MARIE Voice ID: [id number] Report ID: [id number]
[2021-03-22] MEDS: NA CHLORIDE 0.9% 1,000 ML IV SCH ×3 (00:25→06:42)
[2021-03-22] MEDS: HYDROCODONE/APAP 5/325 MG TAB PO PRN ×6 (00:27→23:08)
[2021-03-22 06:09] LABS: Absolute Lymphocytes (CBC) 1.4 K/uL (0.7-4.9); Basophils % 0.4 % (0-1.3); Lymphocytes % 19.2 % (15.3-44.8); RBC Red Blood Cell Count 1.96 M/uL (4.33-5.43)
[2021-03-22] MEDS ORDERED: NA CHLORIDE 0.9% 1,000 ML IV SCH (08:00)
[2021-03-22] MEDS: CIPROFLOXACIN 400mg IV 400 MG/200 ML BAG IV SCH ×2 (08:15→21:39)
[2021-03-22] MEDS ORDERED: NA CHLORIDE 0.9% 250 ML IV SCH (10:00)
[2021-03-22 19:55] LABS: Hematocrit 23.3 % (39.6-49.0)
[2021-03-23] MEDS: HYDROCODONE/APAP 5/325 MG TAB PO PRN ×4 (04:07→20:10)
[2021-03-23] MEDS: CIPROFLOXACIN 400mg IV 400 MG/200 ML BAG IV SCH ×2 (08:52→20:10)
[2021-03-23 09:24] LABS: Absolute Lymphocytes (CBC) 1.2 K/uL (0.7-4.9); Basophils % 0.2 % (0-1.3); Hematocrit 26.8 % (39.6-49.0); Lymphocytes % 11.6 % (15.3-44.8); MPV 7.4 fL (7.6-11.3); RBC Red Blood Cell Count 2.78 M/uL (4.33-5.43)
[2021-03-23 10:26] VITALS: O2SAT 97
[2021-03-24] MEDS: HYDROCODONE/APAP 5/325 MG TAB PO PRN ×3 (00:02→09:24)
[2021-03-24] MEDS: CIPROFLOXACIN 400mg IV 400 MG/200 ML BAG IV SCH (08:10)
[2021-03-24 09:06] VITALS: BP 154/98; TEMP 97.8
[2021-03-24 09:11] LABS: Absolute Lymphocytes (CBC) 1.4 K/uL (0.7-4.9); Basophils % 0.3 % (0-1.3); Hematocrit 27.6 % (39.6-49.0); Lymphocytes % 14.4 % (15.3-44.8); RBC Red Blood Cell Count 2.85 M/uL (4.33-5.43)
--- NOTE | 2021-03-24 16:25 | DS ---
Date of Discharge: 03/24/2021 Diagnoses: History of ventral hernia, history of inguinal hernia, history of incarcerated ventral he rnia repair, hemoperitoneum. Hospital Course: The patient is doing well. No complaint. Tolerating diet. Ambulating. No shortn ess of breath. No chest pain. No fever. He is having bowel movement, passing gas. Physical Examination: Chest: Clear. Abdomen: Soft and depressible. Intact surgical sites. No open wounds. No cellulitis. No guarding or rebound. Extremities: Good capillary refill. Laboratory Data: Hemoglobin stable right now 9.7. Discharge Instructions: The patient wants to go home, I agree. The patient will be going home, be c areful with heavy lifting. We discussed with him the importance of when he gets out of bed, just be nice and slow and avoid any accidents or any falls. We will see the patient next Wednesday in my off ice. He can go with normal diet and no heavy lifting. AME/MARIE Voice ID: [id number] Report ID: [id number]
== END 2021-03-24 10:50 | disposition home or self-care (01) | DRG 395 ==
LOC: ER 04:05 → ERHOLD 05:38 → OBSVTOIN 15:08 → 2ND 22:19
PROVIDERS: ADMIT Surgery; ATTEND Surgery
PROC: 30233N1 Transfusion of Nonautologous Red Blood Cells into Peripheral Vein, Percutaneous Approach (ICD-10-PCS; principal; 2021-03-20)
DX: K66.1 Hemoperitoneum (principal); F17.210 Nicotine dependence, cigarettes, uncomplicated; Z20.822 Contact with and (suspected) exposure to COVID-19
CPT/HCPCS: 36415; 36430; 74177; 80048; 80076; 82565; 83605; 83690; 85014; 85018; 85025; 85610; 86850; 86900; 86901; 94010; 97161; 99285; J0744; J1170; J2270; J2405; J2550; J3010; J7030; J7040; J7050; J7799; P9016; Q9967; U0003

== ENCOUNTER 2023-04-12 12:51 | Emergency (ER) | payer BC ==
--- OUTSIDE RECORDS SUMMARY | 2023-04-12 12:55 | XMS REPORT | Continuity of Care Document ---
:1970 Author Organization [facility] t Address [address] [place] [address] [place] [id number] Care Team Providers Name Role Phone Kyra He Primary Care Physician [phone] Problems This patient has no known problems. Allergies, Adverse Reactions, Alerts This patient has no known allergies or adverse reactions. Medications Ordered Filled Start Stop Current Ordering Indication Dosage Frequency Signature Comments Components Source Medication Medication Date Date Medication? Clinician (SIG) Name Name Dose 2021-0 No Unknown 14 00:00: 00 Dose 2021-0 No Unknown 04-29 00:00: 00 Dose 2021-0 No Unknown -14 00:00: 00 VALSARTAN 2021-0 No 80 MG 8-23 TABLET 00:00: 00 VALSARTAN 2021-0 No 80 MG 8-23 TABLET 00:00: 00 VALSARTAN 2022-0 No 80 MG 8-23 TABLET 00:00: 00 Suboxone 8 2021-0 No 1mg mg-2 mg 8-11 sublingual 00:00: film 00 Dose 2021-0 No 150 Unknown 8- 00:00: 00 INJECT 2022-0 No 200 0.9ML INTO 8-11 THE MUSCLE 00:00: ONCE 00 WEEKLY. INJECT ONE 2021-0 No (1) ML(S) 8-11 INTO THE 00:00: MUSCLE ONCE 00 WEEKLY. Dose 2-0 No Unknown 8-11 00:00: 00 &lt 2022-0 No 8-11 00:00: 00 &lt 2022-0 No 8-11 00:00: 00 &lt 2022-0 No 8-11 00:00: 00 &lt 2022-0 No 150 8-11 00:00: 00 Suboxone 8 2022-0 No 1mg mg-2 mg 8-11 sublingual 00:00: film 00 Dose 2022-0 No 150 Unknown 8-11 00:00: 00 INJECT 2022-0 No 200 0.9ML INTO 8-11 THE MUSCLE 00:00: ONCE 00 WEEKLY. INJECT ONE 2-0 No (1) ML(S) 8-11 INTO THE 00:00: MUSCLE ONCE 00 WEEKLY. Dose 2022-0 No Unknown 8-11 00:00: 00 &lt 2022-0 No 8-11 00:00: 00 &lt 2022-0 No 8-11 00:00: 00 &lt 2022-0 No 8-11 00:00: 00 &lt 2022-0 No 150 8-11 00:00: 00 Suboxone 8 2021-0 No 1mg mg-2 mg 8-11 sublingual 00:00: film 00 Dose 2-0 No 150 Unknown 8-11 00:00: 00 INJECT 2022-0 No 200 0.9ML INTO 8-11 THE MUSCLE 00:00: ONCE 00 WEEKLY. INJECT ONE 2-0 No (1) ML(S) 8-11 INTO THE 00:00: MUSCLE ONCE 00 WEEKLY. Dose 2022-0 No Unknown 8-11 00:00: 00 &lt 2022-0 No 8-11 00:00: 00 &lt 2022-0 No 8-11 00:00: 00 &lt 2022-0 No 8-11 00:00: 00 &lt 2022-0 No 150 8-11 00:00: 00 &lt 2022-0 No 300 8-10 00:00: 00 &lt 2022-0 No 300 8-10 00:00: 00 &lt 2022-0 No 300 8-10 00:00: 00 TAKE ONE 2022-0 No 150 (1) 7-19 TABLET(S) 00:00: BY MOUTH 00 ONCE A DAY. Dose 2022-0 No Unknown 7-19 00:00: 00 &lt 2022-0 No 7-19 00:00: 00 &lt 2022-0 No 80 7-19 00:00: 00 &lt 2022-0 No 7-19 00:00: 00 TAKE ONE 2022-0 No 150 (1) 7-19 TABLET(S) 00:00: BY MOUTH 00 ONCE A DAY. Dose 2022-0 No Unknown 7-19 00:00: 00 &lt 2022-0 No 7-19 00:00: 00 &lt 2022-0 No 80 7-19 00:00: 00 &lt 2022-0 No 7-19 00:00: 00 TAKE ONE 2022-0 No 150 (1) 7-19 TABLET(S) 00:00: BY MOUTH 00 ONCE A DAY. Dose 2022-0 No Unknown 7-19 00:00: 00 &lt 2022-0 No 7-19 00:00: 00 &lt 2022-0 No 80 7-19 00:00: 00 &lt 2022-0 No 7-19 00:00: 00 Suboxone 8 2-0 No 1mg mg-2 mg 7-14 sublingual 00:00: film 00 &lt 2022-0 No 150 7-14 00:00: 00 Dose 2022-0 No Unknown 7-14 00:00: 00 PLACE ONE 2022-0 No 8 (1) FILM 7-14 UNDER THE 00:00: TONGUE 00 TWICE A DAY. &lt 2022-0 No 300 7-14 00:00: 00 INJECT ONE 2022-0 No 200 (1) ML(S) 7-14 INTO THE 00:00: MUSCLE ONCE 00 WEEKLY. Dose 2022-0 No Unknown 7-14 00:00: 00 INJECT ONE 2022-0 No (1) ML(S) 7-14 INTO THE 00:00: MUSCLE ONCE 00 WEEKLY. &lt 2022-0 No 7-14 00:00: 00 &lt 2022-0 No 7-14 00:00: 00 &lt 2022-0 No 150 7-14 00:00: 00 Suboxone 8 2022-0 No 1mg mg-2 mg 7-14 sublingual 00:00: film 00 &lt 2022-0 No 150 7-14 00:00: 00 Dose 2022-0 No Unknown 7-14 00:00: 00 PLACE ONE 2022-0 No 8 (1) FILM 7-14 UNDER THE 00:00: TONGUE 00 TWICE A DAY. &lt 2022-0 No 300 7-14 00:00: 00 INJECT ONE 2022-0 No 200 (1) ML(S) 7-14 INTO THE 00:00: MUSCLE ONCE 00 WEEKLY. Dose 2022-0 No Unknown 7-14 00:00: 00 INJECT ONE 2022-0 No (1) ML(S) 7-14 INTO THE 00:00: MUSCLE ONCE 00 WEEKLY. &lt 2022-0 No 7-14 00:00: 00 &lt 2022-0 No 7-14 00:00: 00 &lt 2022-0 No 150 7-14 00:00: 00 Suboxone 8 2022-0 No 1mg mg-2 mg 7-14 sublingual 00:00: film 00 &lt 2022-0 No 150 7-14 00:00: 00 Dose 2022-0 No Unknown 7-14 00:00: 00 PLACE ONE 2022-0 No 8 (1) FILM 7-14 UNDER THE 00:00: TONGUE 00 TWICE A DAY. &lt 2022-0 No 300 7-14 00:00: 00 INJECT ONE 2022-0 No 200 (1) ML(S) 7-14 INTO THE 00:00: MUSCLE ONCE 00 WEEKLY. Dose 2022-0 No Unknown 7-14 00:00: 00 INJECT ONE 2022-0 No (1) ML(S) 7-14 INTO THE 00:00: MUSCLE ONCE 00 WEEKLY. &lt 2022-0 No 7-14 00:00: 00 &lt 2022-0 No 7-14 00:00: 00 &lt 2022-0 No 150 7-14 00:00: 00 Suboxone 8 2022-0 No 1mg mg-2 mg 6-16 sublingual 00:00: film 00 DISSOLVE 2022-0 No ONE (1) 6-16 FILM(S) 00:00: UNDER THE 00 TONGUE TWICE DAILY. &lt 2022-0 No 6-16 00:00: 00 &lt 2022-0 No 6-16 00:00: 00 &lt 2022-0 No 6-16 00:00: 00 INJECT ONE 2022-0 No (1) ML(S) 6-16 INTO THE 00:00: MUSCLE ONCE 00 WEEKLY. &lt 2022-0 No 6-16 00:00: 00 &lt 2022-0 No 6-16 00:00: 00 INJECT ONE 2022-0 No (1) ML(S) 6-16 INTO THE 00:00: MUSCLE ONCE 00 WEEKLY. Suboxone 8 2022-0 No 1mg mg-2 mg 6-16 sublingual 00:00: film 00 DISSOLVE 2022-0 No ONE (1) 6-16 FILM(S) 00:00: UNDER THE 00 TONGUE TWICE DAILY. &lt 2022-0 No 6-16 00:00: 00 &lt 2022-0 No 6-16 00:00: 00 &lt 2022-0 No 6-16 00:00: 00 Suboxone 8 2022-0 No 1mg mg-2 mg 6-16 sublingual 00:00: film 00 INJECT ONE 2022-0 No (1) ML(S) 6-16 INTO THE 00:00: MUSCLE ONCE 00 WEEKLY. DISSOLVE 2022-0 No ONE (1) 6-16 FILM(S) 00:00: UNDER THE 00 TONGUE TWICE DAILY. &lt 2022-0 No 6-16 00:00: 00 &lt 2022-0 No 6-16 00:00: 00 &lt 2022-0 No 6-16 00:00: 00 INJECT ONE 2022-0 No (1) ML(S) 6-16 INTO THE 00:00: MUSCLE ONCE 00 WEEKLY. &lt 2022-0 No 6-16 00:00: 00 &lt 2022-0 No 6-16 00:00: 00 INJECT ONE 2022-0 No (1) ML(S) 6-16 INTO THE 00:00: MUSCLE ONCE 00 WEEKLY. &lt 2022-0 No 6-16 00:00: 00 &lt 2022-0 No 6-16 00:00: 00 INJECT ONE 2022-0 No (1) ML(S) 6-16 INTO THE 00:00: MUSCLE ONCE 00 WEEKLY. Suboxone 4 2022-0 No 1mg mg-1 mg 5-17 sublingual 00:00: film 00 Suboxone 8 2022-0 No 1mg mg-2 mg 5-17 sublingual 00:00: film 00 Suboxone 4 2022-0 No 1mg mg-1 mg 5-17 sublingual 00:00: film 00 Suboxone 8 2022-0 No 1mg mg-2 mg 5-17 sublingual 00:00: film 00 Suboxone 4 2022-0 No 1mg mg-1 mg 5-17 sublingual 00:00: film 00 Suboxone 8 2022-0 No 1mg mg-2 mg 5-17 sublingual 00:00: film 00 Dose 2022-0 No Unknown 5-10 00:00: 00 Dose 2022-0 No Unknown 5-10 00:00: 00 Dose 2-0 No Unknown 5-10 00:00: 00 Dose 2-0 No Unknown 5-10 00:00: 00 Dose 2022-0 No Unknown 5-10 00:00: 00 Dose 2022-0 No Unknown 5-10 00:00: 00 Suboxone 4 2-0 No 1mg mg-1 mg 5-10 sublingual 00:00: film 00 Dose 2-0 No Unknown 5-10 00:00: 00 Dose 2-0 No Unknown 5-10 00:00: 00 Dose 2-0 No Unknown 5-10 00:00: 00 Dose 2-0 No Unknown 5-10 00:00: 00 Dose 2-0 No Unknown 5-10 00:00: 00 Dose 2-0 No Unknown 5-10 00:00: 00 Dose 2-0 No Unknown 5-10 00:00: 00 Dose 2-0 No Unknown 5-10 00:00: 00 Dose 2-0 No Unknown 5-10 00:00: 00 Dose 2-0 No Unknown 5-10 00:00: 00 Dose 2-0 No Unknown 5-10 00:00: 00 Dose 2-0 No Unknown 5-10 00:00: 00 Dose 2-0 No Unknown 5-10 00:00: 00 Dose 2-0 No Unknown 5-10 00:00: 00 Dose 2-0 No Unknown 5-10 00:00: 00 Suboxone 4 2-0 No 1mg mg-1 mg 5-10 sublingual 00:00: film 00 Dose 2-0 No Unknown 5-10 00:00: 00 Dose 2022-0 No Unknown 5-10 00:00: 00 Dose 2-0 No Unknown 5-10 00:00: 00 Dose 2-0 No Unknown 5-10 00:00: 00 Dose 2-0 No Unknown 5-10 00:00: 00 Dose 2-0 No Unknown 5-10 00:00: 00 Dose 2022-0 No Unknown 5-10 00:00: 00 Dose 2022-0 No Unknown 5-10 00:00: 00 Dose 2022-0 No Unknown 5-10 00:00: 00 Dose 2-0 No Unknown 5-10 00:00: 00 Dose 2-0 No Unknown 5-10 00:00: 00 Suboxone 4 2021-0 No 1mg mg-1 mg 5-10 sublingual 00:00: film 00 Dose 2-0 No Unknown 5-10 00:00: 00 Dose 2022-0 No Unknown 5-09 00:00: 00 Dose 2-0 No Unknown 5-09 00:00: 00 Dose 2-0 No Unknown 5-09 00:00: 00 Dose 2-0 No Unknown 5-09 00:00: 00 Dose 2-0 No Unknown 5-09 00:00: 00 Dose 2-0 No Unknown 5-09 00:00: 00 Dose 2-0 No Unknown 5-09 00:00: 00 Dose 2-0 No Unknown 5-09 00:00: 00 Dose 2-0 No Unknown 5-09 00:00: 00 Dose 2-0 No Unknown 5-09 00:00: 00 Dose 2-0 No Unknown 5-09 00:00: 00 Dose 2-0 No Unknown 5-09 00:00: 00 Dose 2016-1 No Unknown 2-15 00:00: 00 Dose 2016- No Unknown 2-15 00:00: 00 Dose 2016- No Unknown 2-15 00:00: 00 Vital Signs Vital Name Observation Time Observation Value Comments Source BP Systolic 2022-06-18 11:00:00 BP Diastolic 2022-06-18 11:00:00 Weight Measured 2022-06-18 11:00:00 166.80 pounds Height Measured 2022-06-18 11:00:00 72.05 inches Body Temperature 2022-06-18 11:00:00 97.40 degrees Heart Rate 2022-06-18 11:00:00 84.00 /min Respiratory Rate 2022-06-18 11:00:00 18.00 /min BP Systolic 2022-05-21 11:22:00 122 mm[Hg] BP Diastolic 2022-05-21 11:22:00 75 mm[Hg] Weight Measured 2022-05-21 11:22:00 164.60 pounds Height Measured 2022-05-21 11:22:00 72.05 inches Body Temperature 2022-05-21 11:22:00 97.40 degrees Heart Rate 2022-05-21 11:22:00 78.00 /min Respiratory Rate 2022-05-21 11:22:00 20.00 /min BP Systolic 2022-04-23 10:28:00 131 mm[Hg] BP Diastolic 2022-04-23 10:28:00 82 mm[Hg] Weight Measured 2022-04-23 10:28:00 172.20 pounds Height Measured 2022-04-23 10:28:00 72.05 inches Body Temperature 2022-04-23 10:28:00 97.60 degrees Heart Rate 2022-04-23 10:28:00 71.00 /min Respiratory Rate 2022-04-23 10:28:00 24.00 /min Heart Rate 2022-03-26 10:43:00 97.00 /min Respiratory Rate 2022-03-26 10:43:00 BP Systolic 2022-03-26 10:43:00 154 mm[Hg] BP Diastolic 2022-03-26 10:43:00 95 mm[Hg] Weight Measured 2022-03-26 10:43:00 172.80 pounds Height Measured 2022-03-26 10:43:00 72.05 inches Body Temperature 2022-03-26 10:43:00 98.00 degrees BP Systolic 2022-02-26 10:28:00 106 mm[Hg] BP Diastolic 2022-02-26 10:28:00 69 mm[Hg] Weight Measured 2022-02-26 10:28:00 169.80 pounds Height Measured 2022-02-26 10:28:00 72.05 inches Body Temperature 2022-02-26 10:28:00 97.30 degrees Heart Rate 2022-02-26 10:28:00 69.00 /min Respiratory Rate 2022-02-26 10:28:00 BP Systolic 2022-01-29 10:22:00 117 mm[Hg] BP Diastolic 2022-01-29 10:22:00 73 mm[Hg] Weight Measured 2022-01-29 10:22:00 168.40 pounds Height Measured 2022-01-29 10:22:00 72.05 inches Body Temperature 2022-01-29 10:22:00 97.70 degrees Heart Rate 2022-01-29 10:22:00 83.00 /min Respiratory Rate 2022-01-29 10:22:00 21.00 /min BP Systolic 2021-12-30 10:31:00 122 mm[Hg] BP Diastolic 2021-12-30 10:31:00 75 mm[Hg] Weight Measured 2021-12-30 10:31:00 170.00 pounds Height Measured 2021-12-30 10:31:00 72.05 inches Body Temperature 2021-12-30 10:31:00 97.40 degrees Heart Rate 2021-12-30 10:31:00 87.00 /min Respiratory Rate 2021-12-30 10:31:00 BP Systolic 2021-12-23 10:28:00 122 mm[Hg] BP Diastolic 2021-12-23 10:28:00 68 mm[Hg] Weight Measured 2021-12-23 10:28:00 168.80 pounds Height Measured 2021-12-23 10:28:00 72.05 inches Body Temperature 2021-12-23 10:28:00 98.40 degrees Heart Rate 2021-12-23 10:28:00 86.00 /min Respiratory Rate 2021-12-23 10:28:00 21.00 /min BP Systolic 2017-07-30 09:39:00 155 mm[Hg] BP Diastolic 2017-07-30 09:39:00 104 mm[Hg] Weight Measured 2017-07-30 09:39:00 171.60 pounds Height Measured 2017-07-30 09:39:00 72.05 inches Body Temperature 2017-07-30 09:39:00 97.60 degrees Heart Rate 2017-07-30 09:39:00 82.00 /min Respiratory Rate 2017-07-30 09:39:00 18.00 /min BP Systolic 2017-07-02 14:23:00 134 mm[Hg] BP Diastolic 2017-07-02 14:23:00 89 mm[Hg] Weight Measured 2017-07-02 14:23:00 180.40 pounds Height Measured 2017-07-02 14:23:00 72.05 inches Body Temperature 2017-07-02 14:23:00 98.40 degrees Heart Rate 2017-07-02 14:23:00 80.00 /min Respiratory Rate 2017-07-02 14:23:00 18.00 /min Procedures This patient has no known procedures. Plan of Care Planned Activity Planned Date Details Comments Source Goal Plan of Care Note [code = 11217-1] Goal Plan of Care Note [code = 53056-9] Goal Plan of Care Note [code = 00928-2] Goal Plan of Care Note [code = 12756-5] Goal Plan of Care Note [code = 41354-1] Goal Plan of Care Note [code = 63380-4] Goal Plan of Care Note [code = 35734-0] Goal Plan of Care Note [code = 12549-8] Goal Plan of Care Note [code = 92427-1] Goal Plan of Care Note [code = 63079-4] Goal Plan of Care Note [code = 99648-4] Goal Plan of Care Note [code = 08051-3] Goal Plan of Care Note [code = 82940-7] Goal Plan of Care Note [code = 05206-7] Goal Plan of Care Note [code = 50946-1] Goal Plan of Care Note [code = 79296-8] Goal Plan of Care Note [code = 99632-1] Goal Plan of Care Note [code = 78853-1] Goal Plan of Care Note [code = 67545-1] Goal Plan of Care Note [code = 96531-6] Goal Plan of Care Note [code = 78960-8] Goal Plan of Care Note [code = 56921-1] Goal Plan of Care Note [code = 92693-9] Goal Plan of Care Note [code = 48491-2] Goal Plan of Care Note [code = 74556-6] Goal Plan of Care Note [code = 05344-3] Encounters Start End Encounter Admission Attending Care Care Encounter Source Date/Time Date/Time Type Type Clinicians Facility Department ID 2023-03-23 2023-03-23 Outpatient VIOLETA MCDANIEL [id number] Ash 10:41:00 10:41:00 [id number] Santos 2023-02-08 2023-02-08 Outpatient VIOLETA MCDANIEL [id number] Ash 14:08:57 14:08:57 0626 F Santos 2022-12-09 2022-12-09 Outpatient VIOLETA MCDANIEL [id number] Ash 09:08:51 09:08:51 0426 F Douglas 2022-11-09 2022-11-09 Outpatient SFA SFA [id number] Ash 08:45:24 08:45:24 0327 F Douglas 2022-09-10 2022-09-10 Outpatient SFA SFA [id number] Ash 09:06:34 09:06:34 [id number] F Douglas 2022-08-11 2022-08-11 Outpatient SFA SFA [id number] Ash 09:44:23 09:44:23 1227 F Douglas 2022-07-16 2022-07-16 Outpatient SFA SFA [id number] Ash 11:02:47 11:02:47 1201 F Douglas 2022-06-22 2022-06-22 Outpatient SFA SFA [id number] Ash 15:22:50 15:22:50 1107 F Douglas 2022-06-22 2022-06-22 Outpatient [id number] 00:00:00 00:00:00 Visit [id number]-[id number]-a -[id number]-10y [id number] 2022-06-18 2022-06-18 Outpatient SFA SFA [id number] [id number] Ash 10:58:48 10:58:48 1103 F Douglas 2022-06-18 2022-06-18 Outpatient [id number] 00:00:00 00:00:00 Visit 5fce-49d6 fce-49d6-a -cg7v-5sb k2i-9dmll0 [id number] 74d0ae 2022-05-21 2022-05-21 Outpatient [id number] 00:00:00 00:00:00 Visit [id number] [id number]-w -[id number] [id number] Results Test Description Test Time Test Comments Results Result Comments Source COMPREHENSIVE METABOLIC PANEL 2021-12-24 07:25:40 Test Item Value Reference Range Interpretation Comme nts GLUCOSE (test code = 2217) 80 MG/DL 70-99 BUN (test code = 220) 4 MG/DL 6-20 L CREATININE (test code = 0.76 MG/DL 0.80-1.40 L 2213) eGFR (2020 CKD-EPI) (test 109 ML/MIN/1.73 >60 code = 74431) CALC BUN/CREAT (test code = 5 RATIO 6-28 L 2234) SODIUM (test code = 2230) 143 MEQ/L 133-146 POTASSIUM (test code = 222) 4.0 MEQ/L 3.5-5.4 CHLORIDE (test code = 2214) 101 MEQ/L 95-107 CARBON DIOXIDE (test code = 21 MEQ/L 19-31 2205) CALCIUM (test code = 2208) 9.4 MG/DL 8.5-10.5 PROTEIN, TOTAL (test code = 7.2 G/DL 6.1-8.3 2228) ALBUMIN (test code = 2200) 4.6 G/DL 3.5-5.2 CALC GLOBULIN (test code = 2.6 G/DL 1.9-3.7 2239) CALC A/G RATIO (test code = 1.8 RATIO 1.0-2.6 2233) BILIRUBIN, TOTAL (test code 0.3 MG/DL See_Comment [Automated message] The = 2206) system which ge nerated this result transmit jeannette reference range : <=1.2. The reference range was not used to interpr et this result as gilmer l/abnormal. ALKALINE PHOSPHATASE (test 48 U/L 40-118 code = 2204) AST (test code = 2217) 32 U/L 9-50 ALT (test code = 2219) 20 U/L 5-50 HIV 1/2 4TH GEN, RFLX [id number] 04:58:07 Test Item Value Reference Range Interpretation Comments HIV 1/2 4TH GEN, RFLX CONF (test NON-REACTIVE NON-REACTIVE code = 3514) HEPATITIS PANEL, [id number] 04:58:07 Test Item Value Reference Range Interpretation Comments HEPATITIS A IgM (test NON-REACTIVE NON-REACTIVE code = 34464) HEPATITIS B CORE IgM NON-REACTIVE NON-REACTIVE (test code = 4644) HEPATITIS B SURF AG NON-REACTIVE NON-REACTIVE (test code = 2739) HEPATITIS C ANTIBODY NON-REACTIVE NON-REACTIVE (test code = 4675) INTERPRETATION (NOTE) Hepatitis A HEPATITIS A: (test serology shows no code = 2552) evidence of acu te hepatitis A. INTERPRETATION (NOTE) Hepatitis B HEPATITIS B: (test serology shows no code = 63773) evidence of ac audrey hepatitis B and no indication of exposure to hepatitis B vir us in the previous si xto eight months. INTERPRETATION (NOTE) Hepatitis C HEPATITIS C: (test serology shows no code = 37834) evidence of ex posure to hepatitisC v irus at this time. I t can take up to 12 m onths after exposure tothe hepatitis C vir us for antibodies to become detectab le in the blood in ce rtain patients. UNLES S OTHERWISE INDIC ATED, ALL TESTING PERFORMED [facility], [facility]. [address] [place] [address] [facility] DIRECTOR: TEMI CHOWDHURY M.D. CLIA NUMBER [id number] [place] [id number] CBC W/AUTO DIFF WITH [id number] 04:48:00 Test Item Value Reference Range Interpretation Comments WBC (test code = 10.4 K/UL 3.5-11.0 1001) RBC (test code = 4.35 M/UL 4.50-6.10 L 1002) HEMOGLOBIN (test code 15.8 G/DL 13.5-17.0 = 1003) HEMATOCRIT (test code 46.2 % 40.0-51.0 = 1004) MCV (test code = 106.2 fL 80.0-99.0 H 1005) MCH (test code = 36.3 PG 25.0-33.0 H 1006) MCHC (test code = 34.2 G/DL 31.0-36.0 1007) RDW (test code = 11.9 % 11.5-15.0 1038) NEUTROPHILS (test 48.5 % code = 1008) LYMPHOCYTES (test 39.7 % code = 1010) MONOCYTES (test code 8.3 % = 1011) EOSINOPHILS (test 2.3 % code = 1012) BASOPHILS (test code 0.9 % = 1013) IMMATURE GRANULOCYTES 0.3 % (test code = 1036) NUCLEATED RBCS (test 0.0 /100 WBC'S See_Comment [Aut omated code = 1065) message] The sy stem which generated this result transmitted reference range : 0.0. The refere nce range was not u sed to interpret th is result as normal/abnormal . PLATELET COUNT (test 287 K/UL 130-400 code = 1015) ABSOLUTE NEUTROPHILS 5.04 K/UL 1.50-7.50 (test code = 1066) ABSOLUTE LYMPHOCYTES 4.13 K/UL 1.00-4.00 H (test code = 1067) ABSOLUTE MONOCYTES 0.86 K/UL 0.20-1.00 (test code = 1068) ABSOLUTE EOSINOPHILS 0.24 K/UL 0.00-0.50 (test code = 1040) ABSOLUTE BASOPHILS 0.09 K/UL 0.00-0.20 (test code = 1069) ABS IMMATURE 0.03 K/UL 0.00-0.10 GRANULOCYTES (test code = 1020) ABS NUCLEATED RBCS 0.00 K/UL 0.00-0.11 (test code = 86239) HIV AB/AG COMBO RFLX [id number] 00:00:00 Test Item Value Reference Range Interpretation Comments HIV 1/2 4TH GEN, RFLX CONF (test NON-REACTIVE code = 3514) HIV AB/AG COMBO RFLX [id number] 00:00:00 Test Item Value Reference Range Interpretation Comments HIV 1/2 4TH GEN, RFLX CONF (test NON-REACTIVE code = 3514) ACUTE HEPATITIS [id number] 00:00:00 Test Item Value Reference Range Interpretation Comments HEPATITIS A IgM (test code = NON-REACTIVE 60451) HEPATITIS B CORE IgM (test code NON-REACTIVE = 4644) HEPATITIS B SURF AG (test code = NON-REACTIVE 2739) HEPATITIS C ANTIBODY (test code NON-REACTIVE = 4675) INTERPRETATION HEPATITIS A: (NOTE) (test code = 2552) INTERPRETATION HEPATITIS B: (NOTE) (test code = 64514) INTERPRETATION HEPATITIS C: (NOTE) (test code = 30523) ACUTE HEPATITIS [id number] 00:00:00 Test Item Value Reference Range Interpretation Comments HEPATITIS A IgM (test code = NON-REACTIVE 36246) HEPATITIS B CORE IgM (test code NON-REACTIVE = 4644) HEPATITIS B SURF AG (test code = NON-REACTIVE 2739) HEPATITIS C ANTIBODY (test code NON-REACTIVE = 4675) INTERPRETATION HEPATITIS A: (NOTE) (test code = 2552) INTERPRETATION HEPATITIS B: (NOTE) (test code = 96436) INTERPRETATION HEPATITIS C: (NOTE) (test code = 94503) COMPREHENSIVE METABOLIC [id number] 00:00:00 Test Item Value Reference Range Interpretation Comments GLUCOSE (test code = 2217) 80 MG/DL BUN (test code = 2208) 4 MG/DL CREATININE (test code = 2214) 0.76 MG/DL eGFR (2020 CKD-EPI) (test 109 ML/MIN/1.73 code = 39916) CALC BUN/CREAT (test code = 5 RATIO 2235) SODIUM (test code = 2231) 143 MEQ/L POTASSIUM (test code = 2228) 4.0 MEQ/L CHLORIDE (test code = 2215) 101 MEQ/L CARBON DIOXIDE (test code = 21 MEQ/L 2205) CALCIUM (test code = 2209) 9.4 MG/DL PROTEIN, TOTAL (test code = 7.2 G/DL 2228) ALBUMIN (test code = 2201) 4.6 G/DL CALC GLOBULIN (test code = 2.6 G/DL 2239) CALC A/G RATIO (test code = 1.8 RATIO 2234) BILIRUBIN, TOTAL (test code = 0.3 MG/DL 2206) ALKALINE PHOSPHATASE (test 48 U/L code = 2204) AST (test code = 2218) 32 U/L ALT (test code = 2219) 20 U/L COMPREHENSIVE METABOLIC [id number] 00:00:00 Test Item Value Reference Range Interpretation Comments GLUCOSE (test code = 2217) 80 MG/DL BUN (test code = 2208) 4 MG/DL CREATININE (test code = 2214) 0.76 MG/DL eGFR (2020 CKD-EPI) (test 109 ML/MIN/1.73 code = 24655) CALC BUN/CREAT (test code = 5 RATIO 2235) SODIUM (test code = 2231) 143 MEQ/L POTASSIUM (test code = 2228) 4.0 MEQ/L CHLORIDE (test code = 2215) 101 MEQ/L CARBON DIOXIDE (test code = 21 MEQ/L 220) CALCIUM (test code = 2209) 9.4 MG/DL PROTEIN, TOTAL (test code = 7.2 G/DL 2228) ALBUMIN (test code = 2201) 4.6 G/DL CALC GLOBULIN (test code = 2.6 G/DL 2240) CALC A/G RATIO (test code = 1.8 RATIO 4) BILIRUBIN, TOTAL (test code = 0.3 MG/DL 2206) ALKALINE PHOSPHATASE (test 48 U/L code = 2204) AST (test code = 2218) 32 U/L ALT (test code = 2219) 20 U/L CBC W/AUTO [id number] 00:00:00 Test Item Value Reference Range Interpretation Comments WBC (test code = 1001) 10.4 K/UL RBC (test code = 1002) 4.35 M/UL HEMOGLOBIN (test code = 1003) 15.8 G/DL HEMATOCRIT (test code = 1004) 46.2 % MCV (test code = 1005) 106.2 fL MCH (test code = 1006) 36.3 PG MCHC (test code = 1007) 34.2 G/DL RDW (test code = 1038) 11.9 % NEUTROPHILS (test code = 1008) 48.5 % LYMPHOCYTES (test code = 1010) 39.7 % MONOCYTES (test code = 1011) 8.3 % EOSINOPHILS (test code = 1012) 2.3 % BASOPHILS (test code = 1013) 0.9 % IMMATURE GRANULOCYTES (test 0.3 % code = 1036) NUCLEATED RBCS (test code = 0.0 /100WBC'S 1065) PLATELET COUNT (test code = 287 K/UL 1015) ABSOLUTE NEUTROPHILS (test code 5.04 K/UL = 1066) ABSOLUTE LYMPHOCYTES (test code 4.13 K/UL = 1067) ABSOLUTE MONOCYTES (test code = 0.86 K/UL 1068) ABSOLUTE EOSINOPHILS (test code 0.24 K/UL = 1040) ABSOLUTE BASOPHILS (test code = 0.09 K/UL 1069) ABS IMMATURE GRANULOCYTES (test 0.03 K/UL code = 1020) ABS NUCLEATED RBCS (test code = 0.00 K/UL 44604) CBC W/AUTO [id number] 00:00:00 Test Item Value Reference Range Interpretation Comments WBC (test code = 1001) 10.4 K/UL RBC (test code = 1002) 4.35 M/UL HEMOGLOBIN (test code = 1003) 15.8 G/DL HEMATOCRIT (test code = 1004) 46.2 % MCV (test code = 1005) 106.2 fL MCH (test code = 1006) 36.3 PG MCHC (test code = 1007) 34.2 G/DL RDW (test code = 1038) 11.9 % NEUTROPHILS (test code = 1008) 48.5 % LYMPHOCYTES (test code = 1010) 39.7 % MONOCYTES (test code = 1011) 8.3 % EOSINOPHILS (test code = 1012) 2.3 % BASOPHILS (test code = 1013) 0.9 % IMMATURE GRANULOCYTES (test 0.3 % code = 1036) NUCLEATED RBCS (test code = 0.0 /100WBC'S 1065) PLATELET COUNT (test code = 287 K/UL 1015) ABSOLUTE NEUTROPHILS (test code 5.04 K/UL = 1066) ABSOLUTE LYMPHOCYTES (test code 4.13 K/UL = 1067) ABSOLUTE MONOCYTES (test code = 0.86 K/UL 1068) ABSOLUTE EOSINOPHILS (test code 0.24 K/UL = 1040) ABSOLUTE BASOPHILS (test code = 0.09 K/UL 1069) ABS IMMATURE GRANULOCYTES (test 0.03 K/UL code = 1020) ABS NUCLEATED RBCS (test code = 0.00 K/UL 08691) CBC W/AUTO [id number] 00:00:00 Test Item Value Reference Range Interpretation Comments WBC (test code = 1001) 10.4 K/UL RBC (test code = 1002) 4.35 M/UL HEMOGLOBIN (test code = 1003) 15.8 G/DL HEMATOCRIT (test code = 1004) 46.2 % MCV (test code = 1005) 106.2 fL MCH (test code = 1006) 36.3 PG MCHC (test code = 1007) 34.2 G/DL RDW (test code = 1038) 11.9 % NEUTROPHILS (test code = 1008) 48.5 % LYMPHOCYTES (test code = 1010) 39.7 % MONOCYTES (test code = 1011) 8.3 % EOSINOPHILS (test code = 1012) 2.3 % BASOPHILS (test code = 1013) 0.9 % IMMATURE GRANULOCYTES (test 0.3 % code = 1036) NUCLEATED RBCS (test code = 0.0 /100WBC'S 1065) PLATELET COUNT (test code = 287 K/UL 1015) ABSOLUTE NEUTROPHILS (test code 5.04 K/UL = 1066) ABSOLUTE LYMPHOCYTES (test code 4.13 K/UL = 1067) ABSOLUTE MONOCYTES (test code = 0.86 K/UL 1068) ABSOLUTE EOSINOPHILS (test code 0.24 K/UL = 1040) ABSOLUTE BASOPHILS (test code = 0.09 K/UL 1069) ABS IMMATURE GRANULOCYTES (test 0.03 K/UL code = 1020) ABS NUCLEATED RBCS (test code = 0.00 K/UL 04033) HIV AB/AG COMBO RFLX [id number] 00:00:00 Test Item Value Reference Range Interpretation Comments HIV 1/2 4TH GEN, RFLX CONF (test NON-REACTIVE code = 3514) HIV AB/AG COMBO RFLX [id number] 00:00:00 Test Item Value Reference Range Interpretation Comments HIV 1/2 4TH GEN, RFLX CONF (test NON-REACTIVE code = 3514) ACUTE HEPATITIS [id number] 00:00:00 Test Item Value Reference Range Interpretation Comments HEPATITIS A IgM (test code = NON-REACTIVE 52235) HEPATITIS B CORE IgM (test code NON-REACTIVE = 4644) HEPATITIS B SURF AG (test code = NON-REACTIVE 2739) HEPATITIS C ANTIBODY (test code NON-REACTIVE = 4675) INTERPRETATION HEPATITIS A: (NOTE) (test code = 2552) INTERPRETATION HEPATITIS B: (NOTE) (test code = 07098) INTERPRETATION HEPATITIS C: (NOTE) (test code = 47929) ACUTE HEPATITIS [id number] 00:00:00 Test Item Value Reference Range Interpretation Comments HEPATITIS A IgM (test code = NON-REACTIVE 63013) HEPATITIS B CORE IgM (test code NON-REACTIVE = 4644) HEPATITIS B SURF AG (test code = NON-REACTIVE 2739) HEPATITIS C ANTIBODY (test code NON-REACTIVE = 4675) INTERPRETATION HEPATITIS A: (NOTE) (test code = 2552) INTERPRETATION HEPATITIS B: (NOTE) (test code = 07267) INTERPRETATION HEPATITIS C: (NOTE) (test code = 96668) COMPREHENSIVE METABOLIC [id number] 00:00:00 Test Item Value Reference Range Interpretation Comments GLUCOSE (test code = 2217) 80 MG/DL BUN (test code = 2208) 4 MG/DL CREATININE (test code = 2214) 0.76 MG/DL eGFR (2020 CKD-EPI) (test 109 ML/MIN/1.73 code = 34390) CALC BUN/CREAT (test code = 5 RATIO 2235) SODIUM (test code = 2231) 143 MEQ/L POTASSIUM (test code = 2228) 4.0 MEQ/L CHLORIDE (test code = 2215) 101 MEQ/L CARBON DIOXIDE (test code = 21 MEQ/L 2206) CALCIUM (test code = 2209) 9.4 MG/DL PROTEIN, TOTAL (test code = 7.2 G/DL 2228) ALBUMIN (test code = 2201) 4.6 G/DL CALC GLOBULIN (test code = 2.6 G/DL 2240) CALC A/G RATIO (test code = 1.8 RATIO 2234) BILIRUBIN, TOTAL (test code = 0.3 MG/DL 2206) ALKALINE PHOSPHATASE (test 48 U/L code = 2204) AST (test code = 2218) 32 U/L ALT (test code = 2219) 20 U/L COMPREHENSIVE METABOLIC [id number] 00:00:00 Test Item Value Reference Range Interpretation Comments GLUCOSE (test code = 2217) 80 MG/DL BUN (test code = 2208) 4 MG/DL CREATININE (test code = 2214) 0.76 MG/DL eGFR (2020 CKD-EPI) (test 109 ML/MIN/1.73 code = 39557) CALC BUN/CREAT (test code = 5 RATIO 2235) SODIUM (test code = 2231) 143 MEQ/L POTASSIUM (test code = 2228) 4.0 MEQ/L CHLORIDE (test code = 2215) 101 MEQ/L CARBON DIOXIDE (test code = 21 MEQ/L 2205) CALCIUM (test code = 2209) 9.4 MG/DL PROTEIN, TOTAL (test code = 7.2 G/DL 2228) ALBUMIN (test code = 2201) 4.6 G/DL CALC GLOBULIN (test code = 2.6 G/DL 2240) CALC A/G RATIO (test code = 1.8 RATIO 2234) BILIRUBIN, TOTAL (test code = 0.3 MG/DL 2206) ALKALINE PHOSPHATASE (test 48 U/L code = 2204) AST (test code = 2218) 32 U/L ALT (test code = 2219) 20 U/L CBC W/AUTO [id number] 00:00:00 Test Item Value Reference Range Interpretation Comments WBC (test code = 1001) 10.4 K/UL RBC (test code = 1002) 4.35 M/UL HEMOGLOBIN (test code = 1003) 15.8 G/DL HEMATOCRIT (test code = 1004) 46.2 % MCV (test code = 1005) 106.2 fL MCH (test code = 1006) 36.3 PG MCHC (test code = 1007) 34.2 G/DL RDW (test code = 1038) 11.9 % NEUTROPHILS (test code = 1008) 48.5 % LYMPHOCYTES (test code = 1010) 39.7 % MONOCYTES (test code = 1011) 8.3 % EOSINOPHILS (test code = 1012) 2.3 % BASOPHILS (test code = 1013) 0.9 % IMMATURE GRANULOCYTES (test 0.3 % code = 1036) NUCLEATED RBCS (test code = 0.0 /100WBC'S 1065) PLATELET COUNT (test code = 287 K/UL 1015) ABSOLUTE NEUTROPHILS (test code 5.04 K/UL = 1066) ABSOLUTE LYMPHOCYTES (test code 4.13 K/UL = 1067) ABSOLUTE MONOCYTES (test code = 0.86 K/UL 1068) ABSOLUTE EOSINOPHILS (test code 0.24 K/UL = 1040) ABSOLUTE BASOPHILS (test code = 0.09 K/UL 1069) ABS IMMATURE GRANULOCYTES (test 0.03 K/UL code = 1020) ABS NUCLEATED RBCS (test code = 0.00 K/UL 18756) CBC W/AUTO [id number] 00:00:00 Test Item Value Reference Range Interpretation Comments WBC (test code = 1001) 10.4 K/UL RBC (test code = 1002) 4.35 M/UL HEMOGLOBIN (test code = 1003) 15.8 G/DL HEMATOCRIT (test code = 1004) 46.2 % MCV (test code = 1005) 106.2 fL MCH (test code = 1006) 36.3 PG MCHC (test code = 1007) 34.2 G/DL RDW (test code = 1038) 11.9 % NEUTROPHILS (test code = 1008) 48.5 % LYMPHOCYTES (test code = 1010) 39.7 % MONOCYTES (test code = 1011) 8.3 % EOSINOPHILS (test code = 1012) 2.3 % BASOPHILS (test code = 1013) 0.9 % IMMATURE GRANULOCYTES (test 0.3 % code = 1036) NUCLEATED RBCS (test code = 0.0 /100WBC'S 1065) PLATELET COUNT (test code = 287 K/UL 1015) ABSOLUTE NEUTROPHILS (test code 5.04 K/UL = 1066) ABSOLUTE LYMPHOCYTES (test code 4.13 K/UL = 1067) ABSOLUTE MONOCYTES (test code = 0.86 K/UL 1068) ABSOLUTE EOSINOPHILS (test code 0.24 K/UL = 1040) ABSOLUTE BASOPHILS (test code = 0.09 K/UL 1069) ABS IMMATURE GRANULOCYTES (test 0.03 K/UL code = 1020) ABS NUCLEATED RBCS (test code = 0.00 K/UL 49239) CBC W/AUTO [id number] 00:00:00 Test Item Value Reference Range Interpretation Comments WBC (test code = 1001) 10.4 K/UL RBC (test code = 1002) 4.35 M/UL HEMOGLOBIN (test code = 1003) 15.8 G/DL HEMATOCRIT (test code = 1004) 46.2 % MCV (test code = 1005) 106.2 fL MCH (test code = 1006) 36.3 PG MCHC (test code = 1007) 34.2 G/DL RDW (test code = 1038) 11.9 % NEUTROPHILS (test code = 1008) 48.5 % LYMPHOCYTES (test code = 1010) 39.7 % MONOCYTES (test code = 1011) 8.3 % EOSINOPHILS (test code = 1012) 2.3 % BASOPHILS (test code = 1013) 0.9 % IMMATURE GRANULOCYTES (test 0.3 % code = 1036) NUCLEATED RBCS (test code = 0.0 /100WBC'S 1065) PLATELET COUNT (test code = 287 K/UL 1015) ABSOLUTE NEUTROPHILS (test code 5.04 K/UL = 1066) ABSOLUTE LYMPHOCYTES (test code 4.13 K/UL = 1067) ABSOLUTE MONOCYTES (test code = 0.86 K/UL 1068) ABSOLUTE EOSINOPHILS (test code 0.24 K/UL = 1040) ABSOLUTE BASOPHILS (test code = 0.09 K/UL 1069) ABS IMMATURE GRANULOCYTES (test 0.03 K/UL code = 1020) ABS NUCLEATED RBCS (test code = 0.00 K/UL 79634) HIV AB/AG COMBO RFLX [id number] 00:00:00 Test Item Value Reference Range Interpretation Comments HIV 1/2 4TH GEN, RFLX CONF (test NON-REACTIVE code = 3514) HIV AB/AG COMBO RFLX [id number] 00:00:00 Test Item Value Reference Range Interpretation Comments HIV 1/2 4TH GEN, RFLX CONF (test NON-REACTIVE code = 3514) ACUTE HEPATITIS [id number] 00:00:00 Test Item Value Reference Range Interpretation Comments HEPATITIS A IgM (test code = NON-REACTIVE 55894) HEPATITIS B CORE IgM (test code NON-REACTIVE = 4644) HEPATITIS B SURF AG (test code = NON-REACTIVE 2739) HEPATITIS C ANTIBODY (test code NON-REACTIVE = 4675) INTERPRETATION HEPATITIS A: (NOTE) (test code = 2552) INTERPRETATION HEPATITIS B: (NOTE) (test code = 99695) INTERPRETATION HEPATITIS C: (NOTE) (test code = 26621) ACUTE HEPATITIS [id number] 00:00:00 Test Item Value Reference Range Interpretation Comments HEPATITIS A IgM (test code = NON-REACTIVE 21452) HEPATITIS B CORE IgM (test code NON-REACTIVE = 4644) HEPATITIS B SURF AG (test code = NON-REACTIVE 2739) HEPATITIS C ANTIBODY (test code NON-REACTIVE = 4675) INTERPRETATION HEPATITIS A: (NOTE) (test code = 2552) INTERPRETATION HEPATITIS B: (NOTE) (test code = 96466) INTERPRETATION HEPATITIS C: (NOTE) (test code = 07716) COMPREHENSIVE METABOLIC [id number] 00:00:00 Test Item Value Reference Range Interpretation Comments GLUCOSE (test code = 2217) 80 MG/DL BUN (test code = 2208) 4 MG/DL CREATININE (test code = 2214) 0.76 MG/DL eGFR (2020 CKD-EPI) (test 109 ML/MIN/1.73 code = 76761) CALC BUN/CREAT (test code = 5 RATIO 2235) SODIUM (test code = 2231) 143 MEQ/L POTASSIUM (test code = 2228) 4.0 MEQ/L CHLORIDE (test code = 2215) 101 MEQ/L CARBON DIOXIDE (test code = 21 MEQ/L 2205) CALCIUM (test code = 2209) 9.4 MG/DL PROTEIN, TOTAL (test code = 7.2 G/DL 2228) ALBUMIN (test code = 2201) 4.6 G/DL CALC GLOBULIN (test code = 2.6 G/DL 2240) CALC A/G RATIO (test code = 1.8 RATIO 2234) BILIRUBIN, TOTAL (test code = 0.3 MG/DL 2206) ALKALINE PHOSPHATASE (test 48 U/L code = 2204) AST (test code = 2218) 32 U/L ALT (test code = 2219) 20 U/L COMPREHENSIVE METABOLIC [id number] 00:00:00 Test Item Value Reference Range Interpretation Comments GLUCOSE (test code = 2217) 80 MG/DL BUN (test code = 2208) 4 MG/DL CREATININE (test code = 2214) 0.76 MG/DL eGFR (2020 CKD-EPI) (test 109 ML/MIN/1.73 code = 68967) CALC BUN/CREAT (test code = 5 RATIO 2235) SODIUM (test code = 2231) 143 MEQ/L POTASSIUM (test code = 2228) 4.0 MEQ/L CHLORIDE (test code = 2215) 101 MEQ/L CARBON DIOXIDE (test code = 21 MEQ/L 2205) CALCIUM (test code = 2209) 9.4 MG/DL PROTEIN, TOTAL (test code = 7.2 G/DL 2228) ALBUMIN (test code = 2201) 4.6 G/DL CALC GLOBULIN (test code = 2.6 G/DL 2240) CALC A/G RATIO (test code = 1.8 RATIO 2234) BILIRUBIN, TOTAL (test code = 0.3 MG/DL 2206) ALKALINE PHOSPHATASE (test 48 U/L code = 2204) AST (test code = 2218) 32 U/L ALT (test code = 2219) 20 U/L CBC W/AUTO [id number] 00:00:00 Test Item Value Reference Range Interpretation Comments WBC (test code = 1001) 10.4 K/UL RBC (test code = 1002) 4.35 M/UL HEMOGLOBIN (test code = 1003) 15.8 G/DL HEMATOCRIT (test code = 1004) 46.2 % MCV (test code = 1005) 106.2 fL MCH (test code = 1006) 36.3 PG MCHC (test code = 1007) 34.2 G/DL RDW (test code = 1038) 11.9 % NEUTROPHILS (test code = 1008) 48.5 % LYMPHOCYTES (test code = 1010) 39.7 % MONOCYTES (test code = 1011) 8.3 % EOSINOPHILS (test code = 1012) 2.3 % BASOPHILS (test code = 1013) 0.9 % IMMATURE GRANULOCYTES (test 0.3 % code = 1036) NUCLEATED RBCS (test code = 0.0 /100WBC'S 1065) PLATELET COUNT (test code = 287 K/UL 1015) ABSOLUTE NEUTROPHILS (test code 5.04 K/UL = 1066) ABSOLUTE LYMPHOCYTES (test code 4.13 K/UL = 1067) ABSOLUTE MONOCYTES (test code = 0.86 K/UL 1068) ABSOLUTE EOSINOPHILS (test code 0.24 K/UL = 1040) ABSOLUTE BASOPHILS (test code = 0.09 K/UL 1069) ABS IMMATURE GRANULOCYTES (test 0.03 K/UL code = 1020) ABS NUCLEATED RBCS (test code = 0.00 K/UL 23516) CBC W/AUTO [id number] 00:00:00 Test Item Value Reference Range Interpretation Comments WBC (test code = 1001) 10.4 K/UL RBC (test code = 1002) 4.35 M/UL HEMOGLOBIN (test code = 1003) 15.8 G/DL HEMATOCRIT (test code = 1004) 46.2 % MCV (test code = 1005) 106.2 fL MCH (test code = 1006) 36.3 PG MCHC (test code = 1007) 34.2 G/DL RDW (test code = 1038) 11.9 % NEUTROPHILS (test code = 1008) 48.5 % LYMPHOCYTES (test code = 1010) 39.7 % MONOCYTES (test code = 1011) 8.3 % EOSINOPHILS (test code = 1012) 2.3 % BASOPHILS (test code = 1013) 0.9 % IMMATURE GRANULOCYTES (test 0.3 % code = 1036) NUCLEATED RBCS (test code = 0.0 /100WBC'S 1065) PLATELET COUNT (test code = 287 K/UL 1015) ABSOLUTE NEUTROPHILS (test code 5.04 K/UL = 1066) ABSOLUTE LYMPHOCYTES (test code 4.13 K/UL = 1067) ABSOLUTE MONOCYTES (test code = 0.86 K/UL 1068) ABSOLUTE EOSINOPHILS (test code 0.24 K/UL = 1040) ABSOLUTE BASOPHILS (test code = 0.09 K/UL 1069) ABS IMMATURE GRANULOCYTES (test 0.03 K/UL code = 1020) ABS NUCLEATED RBCS (test code = 0.00 K/UL 27530) CBC W/AUTO [id number] 00:00:00 Test Item Value Reference Range Interpretation Comments WBC (test code = 1001) 10.4 K/UL RBC (test code = 1002) 4.35 M/UL HEMOGLOBIN (test code = 1003) 15.8 G/DL HEMATOCRIT (test code = 1004) 46.2 % MCV (test code = 1005) 106.2 fL MCH (test code = 1006) 36.3 PG MCHC (test code = 1007) 34.2 G/DL RDW (test code = 1038) 11.9 % NEUTROPHILS (test code = 1008) 48.5 % LYMPHOCYTES (test code = 1010) 39.7 % MONOCYTES (test code = 1011) 8.3 % EOSINOPHILS (test code = 1012) 2.3 % BASOPHILS (test code = 1013) 0.9 % IMMATURE GRANULOCYTES (test 0.3 % code = 1036) NUCLEATED RBCS (test code = 0.0 /100WBC'S 1065) PLATELET COUNT (test code = 287 K/UL 1015) ABSOLUTE NEUTROPHILS (test code 5.04 K/UL = 1066) ABSOLUTE LYMPHOCYTES (test code 4.13 K/UL = 1067) ABSOLUTE MONOCYTES (test code = 0.86 K/UL 1068) ABSOLUTE EOSINOPHILS (test code 0.24 K/UL = 1040) ABSOLUTE BASOPHILS (test code = 0.09 K/UL 1069) ABS IMMATURE GRANULOCYTES (test 0.03 K/UL code = 1020) ABS NUCLEATED RBCS (test code = 0.00 K/UL 28881) CBC W/AUTO [id number] 00:00:00 Test Item Value Reference Range Interpretation Comments WBC (test code = 1001) 6.2 K/UL RBC (test code = 1002) 4.05 M/UL HEMOGLOBIN (test code = 1003) 13.7 G/DL HEMATOCRIT (test code = 1004) 39.3 % MCV (test code = 1005) 97.0 fL MCH (test code = 1006) 33.8 PG MCHC (test code = 1007) 34.9 G/DL RDW (test code = 1038) 12.7 % NEUTROPHILS (test code = 1008) 37.0 % LYMPHOCYTES (test code = 1010) 49.8 % MONOCYTES (test code = 1011) 8.6 % EOSINOPHILS (test code = 1012) 3.6 % BASOPHILS (test code = 1013) 1.0 % PLATELET COUNT (test code = 1015) 263 K/UL CBC W/AUTO [id number] 00:00:00 Test Item Value Reference Range Interpretation Comments WBC (test code = 1001) 6.2 K/UL RBC (test code = 1002) 4.05 M/UL HEMOGLOBIN (test code = 1003) 13.7 G/DL HEMATOCRIT (test code = 1004) 39.3 % MCV (test code = 1005) 97.0 fL MCH (test code = 1006) 33.8 PG MCHC (test code = 1007) 34.9 G/DL RDW (test code = 1038) 12.7 % NEUTROPHILS (test code = 1008) 37.0 % LYMPHOCYTES (test code = 1010) 49.8 % MONOCYTES (test code = 1011) 8.6 % EOSINOPHILS (test code = 1012) 3.6 % BASOPHILS (test code = 1013) 1.0 % PLATELET COUNT (test code = 1015) 263 K/UL CBC W/AUTO [id number] 00:00:00 Test Item Value Reference Range Interpretation Comments WBC (test code = 1001) 6.2 K/UL RBC (test code = 1002) 4.05 M/UL HEMOGLOBIN (test code = 1003) 13.7 G/DL HEMATOCRIT (test code = 1004) 39.3 % MCV (test code = 1005) 97.0 fL MCH (test code = 1006) 33.8 PG MCHC (test code = 1007) 34.9 G/DL RDW (test code = 1038) 12.7 % NEUTROPHILS (test code = 1008) 37.0 % LYMPHOCYTES (test code = 1010) 49.8 % MONOCYTES (test code = 1011) 8.6 % EOSINOPHILS (test code = 1012) 3.6 % BASOPHILS (test code = 1013) 1.0 % PLATELET COUNT (test code = 1015) 263 K/UL HEMOGLOBIN [id number] 00:00:00 Test Item Value Reference Range Interpretation Comments HEMOGLOBIN A1c (test code = 89712) 5.3 % HEMOGLOBIN [id number] 00:00:00 Test Item Value Reference Range Interpretation Comments HEMOGLOBIN A1c (test code = 87313) 5.3 % HEMOGLOBIN [id number] 00:00:00 Test Item Value Reference Range Interpretation Comments HEMOGLOBIN A1c (test code = 27820) 5.3 % [id number] 00:00:00 Test Item Value Reference Range Interpretation Comments TSH (test code = 2821) 0.299 UIU/ML [id number] 00:00:00 Test Item Value Reference Range Interpretation Comments TSH (test code = 2821) 0.299 UIU/ML [id number] 00:00:00 Test Item Value Reference Range Interpretation Comments TSH (test code = 2821) 0.299 UIU/ML COMPREHENSIVE METABOLIC [id number] 00:00:00 Test Item Value Reference Range Interpretation Comments GLUCOSE (test code = 2217) 90 MG/DL BUN (test code = 2208) 5 MG/DL CREATININE (test code = 2214) 0.72 MG/DL eGFR AMER. (test code 131 ML/MIN/1.73 = 21556) eGFR NON- AMER. (test 113 ML/MIN/1.73 code = 18628) CALC BUN/CREAT (test code = 7 RATIO 2234) SODIUM (test code = 2231) 136 MEQ/L POTASSIUM (test code = 2228) 4.1 MEQ/L CHLORIDE (test code = 2215) 96 MEQ/L CARBON DIOXIDE (test code = 22 MEQ/L 2205) CALCIUM (test code = 2209) 8.8 MG/DL PROTEIN, TOTAL (test code = 7.0 G/DL 2228) ALBUMIN (test code = 2201) 4.7 G/DL CALC GLOBULIN (test code = 2.3 G/DL 2239) CALC A/G RATIO (test code = 2.0 RATIO 2233) BILIRUBIN, TOTAL (test code = 0.3 MG/DL 2206) ALKALINE PHOSPHATASE (test 43 U/L code = 2204) AST (test code = 2218) 43 U/L ALT (test code = 2219) 22 U/L COMPREHENSIVE METABOLIC [id number] 00:00:00 Test Item Value Reference Range Interpretation Comments GLUCOSE (test code = 2217) 90 MG/DL BUN (test code = 2208) 5 MG/DL CREATININE (test code = 2214) 0.72 MG/DL eGFR AMER. (test code 131 ML/MIN/1.73 = 22427) eGFR NON- AMER. (test 113 ML/MIN/1.73 code = 37808) CALC BUN/CREAT (test code = 7 RATIO 2235) SODIUM (test code = 2231) 136 MEQ/L POTASSIUM (test code = 2228) 4.1 MEQ/L CHLORIDE (test code = 2215) 96 MEQ/L CARBON DIOXIDE (test code = 22 MEQ/L 2205) CALCIUM (test code = 2209) 8.8 MG/DL PROTEIN, TOTAL (test code = 7.0 G/DL 2228) ALBUMIN (test code = 2201) 4.7 G/DL CALC GLOBULIN (test code = 2.3 G/DL 2239) CALC A/G RATIO (test code = 2.0 RATIO 2233) BILIRUBIN, TOTAL (test code = 0.3 MG/DL 2206) ALKALINE PHOSPHATASE (test 43 U/L code = 2204) AST (test code = 2218) 43 U/L ALT (test code = 2219) 22 U/L LIPID [id number] 00:00:00 Test Item Value Reference Range Interpretation Comments CHOLESTEROL (test code = 2210) 192 MG/DL TRIGLYCERIDES (test code = 2232) 114 MG/DL HDL CHOLESTEROL (test code = 2220) 96 MG/DL CALC LDL CHOL (test code = 2237) 73 MG/DL RISK RATIO LDL/HDL (test code = 0.76 RATIO 2238) LIPID [id number] 00:00:00 Test Item Value Reference Range Interpretation Comments CHOLESTEROL (test code = 2210) 192 MG/DL TRIGLYCERIDES (test code = 2232) 114 MG/DL HDL CHOLESTEROL (test code = 2220) 96 MG/DL CALC LDL CHOL (test code = 2237) 73 MG/DL RISK RATIO LDL/HDL (test code = 0.76 RATIO 2238) CBC W/AUTO [id number] 00:00:00 Test Item Value Reference Range Interpretation Comments WBC (test code = 1001) 6.2 K/UL RBC (test code = 1002) 4.05 M/UL HEMOGLOBIN (test code = 1003) 13.7 G/DL HEMATOCRIT (test code = 1004) 39.3 % MCV (test code = 1005) 97.0 fL MCH (test code = 1006) 33.8 PG MCHC (test code = 1007) 34.9 G/DL RDW (test code = 1038) 12.7 % NEUTROPHILS (test code = 1008) 37.0 % LYMPHOCYTES (test code = 1010) 49.8 % MONOCYTES (test code = 1011) 8.6 % EOSINOPHILS (test code = 1012) 3.6 % BASOPHILS (test code = 1013) 1.0 % PLATELET COUNT (test code = 1015) 263 K/UL CBC W/AUTO [id number] 00:00:00 Test Item Value Reference Range Interpretation Comments WBC (test code = 1001) 6.2 K/UL RBC (test code = 1002) 4.05 M/UL HEMOGLOBIN (test code = 1003) 13.7 G/DL HEMATOCRIT (test code = 1004) 39.3 % MCV (test code = 1005) 97.0 fL MCH (test code = 1006) 33.8 PG MCHC (test code = 1007) 34.9 G/DL RDW (test code = 1038) 12.7 % NEUTROPHILS (test code = 1008) 37.0 % LYMPHOCYTES (test code = 1010) 49.8 % MONOCYTES (test code = 1011) 8.6 % EOSINOPHILS (test code = 1012) 3.6 % BASOPHILS (test code = 1013) 1.0 % PLATELET COUNT (test code = 1015) 263 K/UL CBC W/AUTO [id number] 00:00:00 Test Item Value Reference Range Interpretation Comments WBC (test code = 1001) 6.2 K/UL RBC (test code = 1002) 4.05 M/UL HEMOGLOBIN (test code = 1003) 13.7 G/DL HEMATOCRIT (test code = 1004) 39.3 % MCV (test code = 1005) 97.0 fL MCH (test code = 1006) 33.8 PG MCHC (test code = 1007) 34.9 G/DL RDW (test code = 1038) 12.7 % NEUTROPHILS (test code = 1008) 37.0 % LYMPHOCYTES (test code = 1010) 49.8 % MONOCYTES (test code = 1011) 8.6 % EOSINOPHILS (test code = 1012) 3.6 % BASOPHILS (test code = 1013) 1.0 % PLATELET COUNT (test code = 1015) 263 K/UL HEMOGLOBIN [id number] 00:00:00 Test Item Value Reference Range Interpretation Comments HEMOGLOBIN A1c (test code = 34355) 5.3 % HEMOGLOBIN [id number] 00:00:00 Test Item Value Reference Range Interpretation Comments HEMOGLOBIN A1c (test code = 18819) 5.3 % HEMOGLOBIN [id number] 00:00:00 Test Item Value Reference Range Interpretation Comments HEMOGLOBIN A1c (test code = 81722) 5.3 % [id number] 00:00:00 Test Item Value Reference Range Interpretation Comments TSH (test code = 2821) 0.299 UIU/ML [id number] 00:00:00 Test Item Value Reference Range Interpretation Comments TSH (test code = 2821) 0.299 UIU/ML [id number] 00:00:00 Test Item Value Reference Range Interpretation Comments TSH (test code = 2821) 0.299 UIU/ML COMPREHENSIVE METABOLIC [id number] 00:00:00 Test Item Value Reference Range Interpretation Comments GLUCOSE (test code = 2217) 90 MG/DL BUN (test code = 2208) 5 MG/DL CREATININE (test code = 2214) 0.72 MG/DL eGFR AMER. (test code 131 ML/MIN/1.73 = 96516) eGFR NON- AMER. (test 113 ML/MIN/1.73 code = 90581) CALC BUN/CREAT (test code = 7 RATIO 2234) SODIUM (test code = 2231) 136 MEQ/L POTASSIUM (test code = 2228) 4.1 MEQ/L CHLORIDE (test code = 2215) 96 MEQ/L CARBON DIOXIDE (test code = 22 MEQ/L 2205) CALCIUM (test code = 2209) 8.8 MG/DL PROTEIN, TOTAL (test code = 7.0 G/DL 2228) ALBUMIN (test code = 220) 4.7 G/DL CALC GLOBULIN (test code = 2.3 G/DL 2239) CALC A/G RATIO (test code = 2.0 RATIO 2233) BILIRUBIN, TOTAL (test code = 0.3 MG/DL 2206) ALKALINE PHOSPHATASE (test 43 U/L code = 2204) AST (test code = 2218) 43 U/L ALT (test code = 2219) 22 U/L COMPREHENSIVE METABOLIC [id number] 00:00:00 Test Item Value Reference Range Interpretation Comments GLUCOSE (test code = 2217) 90 MG/DL BUN (test code = 2208) 5 MG/DL CREATININE (test code = 2214) 0.72 MG/DL eGFR AMER. (test code 131 ML/MIN/1.73 = 67718) eGFR NON- AMER. (test 113 ML/MIN/1.73 code = 77135) CALC BUN/CREAT (test code = 7 RATIO 2235) SODIUM (test code = 2231) 136 MEQ/L POTASSIUM (test code = 2228) 4.1 MEQ/L CHLORIDE (test code = 2215) 96 MEQ/L CARBON DIOXIDE (test code = 22 MEQ/L 2205) CALCIUM (test code = 2209) 8.8 MG/DL PROTEIN, TOTAL (test code = 7.0 G/DL 2228) ALBUMIN (test code = 2201) 4.7 G/DL CALC GLOBULIN (test code = 2.3 G/DL 224) CALC A/G RATIO (test code = 2.0 RATIO 2234) BILIRUBIN, TOTAL (test code = 0.3 MG/DL 2206) ALKALINE PHOSPHATASE (test 43 U/L code = 2204) AST (test code = 2218) 43 U/L ALT (test code = 2219) 22 U/L LIPID [id number] 00:00:00 Test Item Value Reference Range Interpretation Comments CHOLESTEROL (test code = 2210) 192 MG/DL TRIGLYCERIDES (test code = 2232) 114 MG/DL HDL CHOLESTEROL (test code = 2220) 96 MG/DL CALC LDL CHOL (test code = 2237) 73 MG/DL RISK RATIO LDL/HDL (test code = 0.76 RATIO 2238) LIPID [id number] 00:00:00 Test Item Value Reference Range Interpretation Comments CHOLESTEROL (test code = 2210) 192 MG/DL TRIGLYCERIDES (test code = 2232) 114 MG/DL HDL CHOLESTEROL (test code = 2220) 96 MG/DL CALC LDL CHOL (test code = 2237) 73 MG/DL RISK RATIO LDL/HDL (test code = 0.76 RATIO 2238) CBC W/AUTO [id number] 00:00:00 Test Item Value Reference Range Interpretation Comments WBC (test code = 1001) 6.2 K/UL RBC (test code = 1002) 4.05 M/UL HEMOGLOBIN (test code = 1003) 13.7 G/DL HEMATOCRIT (test code = 1004) 39.3 % MCV (test code = 1005) 97.0 fL MCH (test code = 1006) 33.8 PG MCHC (test code = 1007) 34.9 G/DL RDW (test code = 1038) 12.7 % NEUTROPHILS (test code = 1008) 37.0 % LYMPHOCYTES (test code = 1010) 49.8 % MONOCYTES (test code = 1011) 8.6 % EOSINOPHILS (test code = 1012) 3.6 % BASOPHILS (test code = 1013) 1.0 % PLATELET COUNT (test code = 1015) 263 K/UL CBC W/AUTO [id number] 00:00:00 Test Item Value Reference Range Interpretation Comments WBC (test code = 1001) 6.2 K/UL RBC (test code = 1002) 4.05 M/UL HEMOGLOBIN (test code = 1003) 13.7 G/DL HEMATOCRIT (test code = 1004) 39.3 % MCV (test code = 1005) 97.0 fL MCH (test code = 1006) 33.8 PG MCHC (test code = 1007) 34.9 G/DL RDW (test code = 1038) 12.7 % NEUTROPHILS (test code = 1008) 37.0 % LYMPHOCYTES (test code = 1010) 49.8 % MONOCYTES (test code = 1011) 8.6 % EOSINOPHILS (test code = 1012) 3.6 % BASOPHILS (test code = 1013) 1.0 % PLATELET COUNT (test code = 1015) 263 K/UL CBC W/AUTO [id number] 00:00:00 Test Item Value Reference Range Interpretation Comments WBC (test code = 1001) 6.2 K/UL RBC (test code = 1002) 4.05 M/UL HEMOGLOBIN (test code = 1003) 13.7 G/DL HEMATOCRIT (test code = 1004) 39.3 % MCV (test code = 1005) 97.0 fL MCH (test code = 1006) 33.8 PG MCHC (test code = 1007) 34.9 G/DL RDW (test code = 1038) 12.7 % NEUTROPHILS (test code = 1008) 37.0 % LYMPHOCYTES (test code = 1010) 49.8 % MONOCYTES (test code = 1011) 8.6 % EOSINOPHILS (test code = 1012) 3.6 % BASOPHILS (test code = 1013) 1.0 % PLATELET COUNT (test code = 1015) 263 K/UL HEMOGLOBIN [id number] 00:00:00 Test Item Value Reference Range Interpretation Comments HEMOGLOBIN A1c (test code = 95897) 5.3 % HEMOGLOBIN [id number] 00:00:00 Test Item Value Reference Range Interpretation Comments HEMOGLOBIN A1c (test code = 93183) 5.3 % HEMOGLOBIN [id number] 00:00:00 Test Item Value Reference Range Interpretation Comments HEMOGLOBIN A1c (test code = 24645) 5.3 % [id number] 00:00:00 Test Item Value Reference Range Interpretation Comments TSH (test code = 2821) 0.299 UIU/ML [id number] 00:00:00 Test Item Value Reference Range Interpretation Comments TSH (test code = 2821) 0.299 UIU/ML [id number] 00:00:00 Test Item Value Reference Range Interpretation Comments TSH (test code = 2821) 0.299 UIU/ML COMPREHENSIVE METABOLIC [id number] 00:00:00 Test Item Value Reference Range Interpretation Comments GLUCOSE (test code = 2217) 90 MG/DL BUN (test code = 2208) 5 MG/DL CREATININE (test code = 2214) 0.72 MG/DL eGFR AMER. (test code 131 ML/MIN/1.73 = 15340) eGFR NON- AMER. (test 113 ML/MIN/1.73 code = 05950) CALC BUN/CREAT (test code = 7 RATIO 2235) SODIUM (test code = 2231) 136 MEQ/L POTASSIUM (test code = 2228) 4.1 MEQ/L CHLORIDE (test code = 2215) 96 MEQ/L CARBON DIOXIDE (test code = 22 MEQ/L 2205) CALCIUM (test code = 2209) 8.8 MG/DL PROTEIN, TOTAL (test code = 7.0 G/DL 2228) ALBUMIN (test code = 2201) 4.7 G/DL CALC GLOBULIN (test code = 2.3 G/DL 2240) CALC A/G RATIO (test code = 2.0 RATIO 2234) BILIRUBIN, TOTAL (test code = 0.3 MG/DL 220) ALKALINE PHOSPHATASE (test 43 U/L code = 2204) AST (test code = 2218) 43 U/L ALT (test code = 2219) 22 U/L COMPREHENSIVE METABOLIC [id number] 00:00:00 Test Item Value Reference Range Interpretation Comments GLUCOSE (test code = 2217) 90 MG/DL BUN (test code = 2208) 5 MG/DL CREATININE (test code = 2214) 0.72 MG/DL eGFR AMER. (test code 131 ML/MIN/1.73 = 04143) eGFR NON- AMER. (test 113 ML/MIN/1.73 code = 33790) CALC BUN/CREAT (test code = 7 RATIO 2235) SODIUM (test code = 2231) 136 MEQ/L POTASSIUM (test code = 2228) 4.1 MEQ/L CHLORIDE (test code = 2215) 96 MEQ/L CARBON DIOXIDE (test code = 22 MEQ/L 2206) CALCIUM (test code = 2209) 8.8 MG/DL PROTEIN, TOTAL (test code = 7.0 G/DL 2228) ALBUMIN (test code = 2201) 4.7 G/DL CALC GLOBULIN (test code = 2.3 G/DL 2240) CALC A/G RATIO (test code = 2.0 RATIO 2234) BILIRUBIN, TOTAL (test code = 0.3 MG/DL 2206) ALKALINE PHOSPHATASE (test 43 U/L code = 2204) AST (test code = 2218) 43 U/L ALT (test code = 2219) 22 U/L LIPID [id number] 00:00:00 Test Item Value Reference Range Interpretation Comments CHOLESTEROL (test code = 2210) 192 MG/DL TRIGLYCERIDES (test code = 2232) 114 MG/DL HDL CHOLESTEROL (test code = 2220) 96 MG/DL CALC LDL CHOL (test code = 2237) 73 MG/DL RISK RATIO LDL/HDL (test code = 0.76 RATIO 2238) LIPID [id number] 00:00:00 Test Item Value Reference Range Interpretation Comments CHOLESTEROL (test code = 2210) 192 MG/DL TRIGLYCERIDES (test code = 2232) 114 MG/DL HDL CHOLESTEROL (test code = 2220) 96 MG/DL CALC LDL CHOL (test code = 2237) 73 MG/DL RISK RATIO LDL/HDL (test code = 0.76 RATIO 8)
[2023-04-12 13:57] LABS: Absolute Lymphocytes (CBC) 2.9 K/uL (0.7-4.9); Hematocrit 38.8 % (39.6-49.0); Lymphocytes % 51.8 % (15.3-44.8); MCV 104.7 fL (80-100); MPV 7.9 fL (7.6-11.3); Platelets 191 thou/uL (152-406)
[2023-04-12 14:02] LABS: Protime INR 0.96
--- NOTE | 2023-04-12 14:10 | RAD REPORT ---
EXAM DESCRIPTION: RAD - Chest Single View - 04/12/2023 2:02 pm CLINICAL HISTORY: CHEST PAIN Chest pain. COMPARISON: <Comparisons> FINDINGS: Portable technique limits examination quality. The lungs are grossly clear. The heart is normal in size. No displaced fractures. IMPRESSION: No acute intrathoracic process suspected.
[2023-04-12 14:13] LABS: Albumin 3.6 g/dL (3.4-5.0); Bilirubin Direct 0.3 mg/dL (0-0.2); Bilirubin Indirect, Calculated 0.6 mg/dL (0.2-0.8); Bilirubin Total 0.9 mg/dL (0.2-1.0); Magnesium 1.9 mg/dL (1.6-2.4); Potassium 3.5 mEq/L (3.5-5.1); Protein, Total 7.3 g/dL (6.4-8.2); Troponin High Sensitivity 7.4 pg/mL (<58.9)
[2023-04-12 14:16] LABS: Barbiturates NEGATIVE (NEGATIVE); Benzodiazepines NEGATIVE (NEGATIVE); Cocaine NEGATIVE (NEGATIVE); METHAMPHETAM NEGATIVE (NEGATIVE); Methadone NEGATIVE (NEGATIVE); Opiates NEGATIVE (NEGATIVE); Phencyclidine NEGATIVE (NEGATIVE); THC Cannibis NEGATIVE (NEGATIVE)
[2023-04-12] MEDS ORDERED: PANTOPRAZOLE 40 MG INJ ONE (14:16)
[2023-04-12] MEDS ORDERED: ONDANSETRON 4 MG/2 ML VIAL ONE (14:16)
[2023-04-12] MEDS ORDERED: NA CHLORIDE 0.9% 1,000 ML ONE (14:19)
--- NOTE | 2023-04-12 15:11 | RAD REPORT ---
EXAM DESCRIPTION: CT - Head Brain Wo Cont - 04/12/2023 2:51 pm CLINICAL HISTORY: headache, confusion Headache, drowsiness, CVA symptomology COMPARISON: No comparisons TECHNIQUE: All CT scans are performed using dose optimization technique as appropriate and may inclu de automated exposure control or mA/KV adjustment according to patient size. FINDINGS: No intracranial hemorrhage, hydrocephalus or extra-axial fluid collection.No areas of brai n edema or evidence of midline shift. Moderate paranasal sinus thickening The calvarium is intact. IMPRESSION: No acute intracranial abnormality.
--- NOTE | 2023-04-12 15:18 | RAD REPORT ---
EXAM DESCRIPTION: CT - Chest For Pe Angio - 04/12/2023 2:53 pm CLINICAL HISTORY: Chest pain. prostate cancer;Chest pain COMPARISON: Head Brain Wo Cont dated 04/12/2023 TECHNIQUE: CT angiogram of the pulmonary arteries was performed with MIP. All CT scans are performed using dose optimization technique as appropriate and may include automated exposure control or mA/KV adjustment according to patient size. FINDINGS: No evidence of pulmonary thromboembolism. No acute aortic finding demonstrated. The lungs are clear. No significant pericardial or pleural fluid. No concerning bony finding. Prominent fatty liver. IMPRESSION: No evidence of pulmonary thromboembolism. No acute lung findings.
--- NOTE | 2023-04-12 16:40 | EDPHYS ---
Physician Documentation [facility] Name: Koko Quintero Age: 52 yrs Sex: Male : 1970 Arrival Date: 04/12/2023 Time: 12:51 Bed DIS1 Private MD: ED Physician Amol Whitley HPI: 04/12 15:52 This 52 yrs old Male presents to ER via EMS with complaints of Chest Pain, Slurred rn Speech. 15:53 The patient or guardian reports chest pain that is located primarily in the substernal rn area. Onset: today. The pain does not radiate. Associated signs and symptoms: Pertinent positives: dizziness, Pertinent negatives: abdominal pain, shortness of breath, syncope, vomiting. The chest pain is described as aching. Duration: The patient or guardian reports a single episode. Modifying factors: The symptoms are alleviated by nothing. the symptoms are aggravated by nothing. Severity of pain: At its worst the pain was moderate in the emergency department the pain has resolved. The patient has not experienced similar symptoms in the past. Pt reports chest pain, began at rest, no drug use, denies ETOH, no injury, no radiation. EMS picked him up and then began to act confused, slurred speech, which has now also improved. NO focal neuro complaint. Patient reports recent diagnosis of prostate cancer. . Historical: - Allergies: 13:06 No Known Allergies; iw - PMHx: 13:06 Hypertensive disorder; prostate cancer; iw - Immunization history:: Adult Immunizations unknown. - Family history:: not pertinent. - Social history:: Smoking status: unknown. - Hospitalizations: : No recent hospitalization is reported. ROS: 15:53 Constitutional: Negative for fever, chills, and weight loss, Eyes: Negative for injury, rn pain, redness, and discharge, Neck: Negative for injury, pain, and swelling, Cardiovascular: Negative for palpitations, and edema, Respiratory: Negative for shortness of breath, cough, wheezing, and pleuritic chest pain, Abdomen/GI: Negative for abdominal pain, nausea, vomiting, diarrhea, and constipation, Back: Negative for injury and pain, MS/Extremity: Negative for injury and deformity, Skin: Negative for injury, rash, and discoloration, Neuro: Negative for headache, weakness, numbness, tingling, and seizure. Exam: 13:30 ECG was reviewed by the Attending Physician. rn 15:53 Constitutional: This is a well developed, well nourished patient who is awake, alert, rn and in no acute distress. Head/Face: Normocephalic, atraumatic. ENT: dry MM Cardiovascular: Regular rate and rhythm . No pulse deficits. Respiratory: No increased work of breathing, no retractions or nasal flaring. Abdomen/GI: Soft, non-tender Skin: Warm, dry MS/ Extremity: Pulses equal, no cyanosis. Neuro: Awake and alert, GCS 15, oriented to person, place, time, and situation. Cranial nerves II-XII grossly intact. Motor strength 5/5 in all extremities. Sensory grossly intact. Cerebellar exam normal. Normal gait. Vital Signs: 13:28 BP 152 / 104; Pulse 78; Resp 16; Temp 98.1; Pulse Ox 99% on R/A; iw 17:01 BP 150 / 94; Pulse 76; Resp 18 S; Pulse Ox 99% on R/A; cm10 MDM: 13:14 Patient medically screened. rn 13:20 ED course: Pt back to baseline, GCS 15, NIH 0.. rn 15:57 Differential diagnosis: acute myocardial infarction, acute pericarditis, anxiety, rn costochondritis, esophagitis, gastritis, gastroesophageal reflux disease (GERD), pleurisy, pneumonia, pneumothorax, pulmonary embolus, ETOH intoxication. Data reviewed: vital signs, nurses notes, lab test result(s), EKG, radiologic studies, CT scan, plain films, and as a result, I will discharge patient. Counseling: I had a detailed discussion with the patient and/or guardian regarding the historical points, exam findings, and any diagnostic results supporting the discharge/admit diagnosis, lab results, radiology results, the need for outpatient follow up, to return to the emergency department if symptoms worsen or persist or if there are any questions or concerns that arise at home. 16:39 Special discussion: I discussed with the patient/guardian in detail that at this point rn there is no indication for admission to the hospital. It is understood, however, that if the symptoms persist or worsen the patient needs to return immediately for re-evaluation. 04/12 13:19 Order name: Basic Metabolic Panel; Complete Time: 15:53 rn 04/12 13:19 Order name: CBC with Diff; Complete Time: 15:53 rn 04/12 13:19 Order name: LFT's; Complete Time: 15:53 rn 04/12 13:19 Order name: Magnesium; Complete Time: 15:53 rn 04/12 13:19 Order name: NT PRO-BNP; Complete Time: 15:53 rn 04/12 13:19 Order name: PT-INR; Complete Time: 15:53 rn 04/12 13:19 Order name: Troponin HS; Complete Time: 15:53 rn 04/12 13:20 Order name: ETOH Level; Complete Time: 15:53 rn 04/12 13:20 Order name: Urine Drug Screen; Complete Time: 15:53 rn 04/12 13:19 Order name: XRAY Chest (1 view); Complete Time: 15:53 rn 04/12 13:19 Order name: CT Head Brain wo Cont; Complete Time: 15:53 rn 04/12 13:19 Order name: CT Chest For PE Angio; Complete Time: 15:53 rn 04/12 13:19 Order name: EKG; Complete Time: 13:20 rn 04/12 13:19 Order name: Cardiac monitoring; Complete Time: 17: rn 04/12 13:19 Order name: EKG - Nurse/Tech; Complete Time: 14: rn 04/12 13:19 Order name: IV Saline Lock; Complete Time: 14: rn 04/12 13:19 Order name: Labs collected and sent; Complete Time: 14:02 rn 04/12 13:19 Order name: O2 Per Protocol; Complete Time: 17: rn 04/12 13:19 Order name: O2 Sat Monitoring; Complete Time: 17: rn 04/12 13:20 Order name: Glucose Level; Complete Time: 14:13 rn EC:30 Rate is 85 beats/min. Rhythm is regular. QRS [place] is Normal. GA interval is normal. QRS rn interval is normal. QT interval is normal. No Q waves. T waves are Normal. No ST changes noted. Clinical impression: Normal ECG. Interpreted by me. Reviewed by me. Administered Medications: 14:13 Drug: NS 0.9% IV 1000 ml Route: IV; Rate: 1000 ml; Site: left forearm; iw 17:01 Follow up: IV Status: Completed infusion; IV Intake: 1000ml cm10 Disposition Summary: 04/12/23 16:40 Discharge Ordered Location: Home rn Problem: new rn Symptoms: have improved rn Condition: Stable rn Diagnosis - Chest pain, unspecified rn - Alcohol use, unspecified rn Followup: rn - With: Private Physician - When: As needed - Reason: Recheck today's complaints, Re-evaluation by your physician Discharge Instructions: - Discharge Summary Sheet rn - Nonspecific Chest Pain, Adult rn Forms: - Work release form iw - Medication Reconciliation Form rn - Thank You Letter rn - Antibiotic mother baby rn - Prescription Opioid Use rn - Patient Portal Instructions rn - Leadership Thank You Letter rn Signatures: Dispatcher [employer] Danielle Yi RN RN Amol Whitley MD MD rn Martinez, Clarissa RN RN cm10
--- NOTE | 2023-04-12 16:40 | ER ---
Nurse's Notes [facility] Name: Koko Quintero Age: 52 yrs Sex: Male : 1970 Arrival Date: 04/12/2023 Time: 12:51 Bed DIS1 Private MD: Diagnosis: Chest pain, unspecified;Alcohol use, unspecified Presentation: 04/12 13:04 Chief complaint: EMS states: toned out for 52 male chest pain, 10/10 band of pain iw around chest, he became incomprehensible , 12lead was NSR, VSS, cognitive ability declined, no loss of coordination , EX=361 , now he is speaking clearly . He was not working in the heat but was working around chemicals. Coronavirus screen: At this time, the client does not indicate any symptoms associated with coronavirus-19. Ebola Screen: Patient negative for fever greater than or equal to 101.5 degrees Fahrenheit, and additional compatible Ebola Virus Disease symptoms Patient denies exposure to infectious person. Patient denies travel to an Ebola-affected area in the 21 days before illness onset. No symptoms or risks identified at this time. Initial Sepsis Screen: Does the patient meet any 2 criteria? No. Patient's initial sepsis screen is negative. Does the patient have a suspected source of infection? No. Patient's initial sepsis screen is negative. Risk Assessment: Do you want to hurt yourself or someone else? Patient reports no desire to harm self or others. Onset of symptoms was April 12, 2023. 13:04 Method Of Arrival: EMS: [facility] iw 13:04 Acuity: RACHEL 3 iw Historical: - Allergies: 13:06 No Known Allergies; iw - PMHx: 13:06 Hypertensive disorder; prostate cancer; iw - Immunization history:: Adult Immunizations unknown. - Family history:: not pertinent. - Social history:: Smoking status: unknown. - Hospitalizations: : No recent hospitalization is reported. Screenin:02 [facility] ED Fall Risk Assessment (Adult) History of falling in the last 3 months, cm10 including since admission No falls in past 3 months (0 pts) Confusion or Disorientation No (0 pts) Intoxicated or Sedated No (0 pts) Impaired Gait No (0 pts) Mobility Assist Device Used No (0 pt) Altered Elimination No (0 pt) Score/Fall Risk Level 0 - 2 = Low Risk Oriented to surroundings, Maintained a safe environment. Abuse screen: Denies threats or abuse. Denies injuries from another. Nutritional screening: No deficits noted. Tuberculosis screening: No symptoms or risk factors identified. Assessment: 17:01 General: Appears in no apparent distress. comfortable, Behavior is calm, cooperative. cm10 Pain: Complains of pain in chest. Neuro: No deficits noted. Level of Consciousness is awake, alert, obeys commands, Oriented to person, place, time, situation. Respiratory: No deficits noted. Airway is patent Respiratory effort is even, unlabored, Respiratory pattern is regular, symmetrical. Vital Signs: 13:28 BP 152 / 104; Pulse 78; Resp 16; Temp 98.1; Pulse Ox 99% on R/A; iw 17:01 BP 150 / 94; Pulse 76; Resp 18 S; Pulse Ox 99% on R/A; cm10 ED Course: 13:03 Patient arrived in ED. rn 13:06 Triage completed. iw 13:14 Amol Whitley MD is Attending Physician. rn 13:16 pt aunt call and left contact number...Sonali [phone]. bd 13:27 Danielle Ivey, RN is Primary Nurse. iw 14:04 XRAY Chest (1 view) In Process Unspecified. EDMS 14:49 CT completed. Patient tolerated procedure well. Note: 22 g to rt ac by krystal in ct. ls3 Patient moved back from CT. 14:53 CT Head Brain wo Cont In Process Unspecified. EDMS 14:55 CT Chest For PE Angio In Process Unspecified. EDMS 17:02 Arm band placed on. cm10 17:02 Patient has correct armband on for positive identification. Provided Education on: N/A. cm10 17:02 No provider procedures requiring assistance completed. IV discontinued, intact, cm10 bleeding controlled, No redness/swelling at site. Pressure dressing applied. Administered Medications: 14:13 Drug: NS 0.9% IV 1000 ml Route: IV; Rate: 1000 ml; Site: left forearm; iw 17:01 Follow up: IV Status: Completed infusion; IV Intake: 1000ml cm10 Medication: 17:02 VIS not applicable for this client. cm10 Intake: 17:01 IV: 1000ml; Total: 1000ml. cm10 Outcome: 16:40 Discharge ordered by . rn 17:02 Discharged to home ambulatory, with friend. cm10 17:02 Condition: good 17:02 Discharge instructions given to patient, Instructed on discharge instructions, follow up and referral plans. Demonstrated understanding of instructions, follow-up care. 17:03 Patient left the ED. cm10 Signatures: Dispatcher [employer] EDMS Isabella Cota Irene, RN RN iw Nieto, Roman, MD MD rn Siler, Lynzie 3 Rosalia Dean RN RN cm10
[2023-04-12 17:21] VITALS: TEMP 98.1; O2SAT 99
[2023-04-12 17:23] VITALS: BP 150/94
--- NOTE | 2023-04-13 16:31 | EKG ---
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
== END 2023-04-12 17:03 | disposition home or self-care (01) ==
LOC: ER 12:51
DX: R07.9 Chest pain, unspecified (principal); F10.90 Alcohol use, unspecified, uncomplicated; I10 Essential (primary) hypertension; C61 Malignant neoplasm of prostate
CPT/HCPCS: 96361; 93005; 85025; 80048; 36415; 83735; 85610; 80076; 84484; 83880; 80307; 70450; 71275; 71045; 96360; 99284; 82077; Q9967; C9113; J2405; J7030